=== PATIENT | male | born 1940 | race Caucasian/White ===

== ENCOUNTER 2018-02-26 20:03 | Inpatient (IN) ==
[2018-02-26] MEDS ORDERED: NITROGLYCERIN 2% OINT 1 INCH/GM PACK TOP STA (20:55)
[2018-02-26] MEDS ORDERED: ASPIRIN 325 MG TABLET PO STA (20:55)
[2018-02-26 21:09] LABS: Basophils # 0.1 10*3/uL (0.0-0.2); Basophils % 0.7 % (0.0-0.8); Eosinophils # 0.3 10*3/uL (0.0-0.87); Eosinophils % 4.2 % (0.00-10.9); Hematocrit 44.4 VOL% (42.0-52.0); Hemoglobin 14.3 GM/DL (14.0-18.0); Immature Granulocytes % 0.3 %; Immature Granulocytes Absolute 0.02 #; Lymphocytes # 2.3 10*3/uL (1.4-4.0); Lymphocytes % 32.7 % (21.2-54.2); Mean Corpuscular HGB Conc 32.2 GM/DL (32-36); Mean Corpuscular Hemoglobin 30 PG (27-34); Mean Corpuscular Volume 93.1 FL (87-102); Mean Platelet Volume 10.8 FL (9.6-12.0); Monocytes # 0.6 10*3/uL (0.11-0.8); Neutrophils # 3.8 10*3/uL (1.4-7.4); Neutrophils % 53.1 % (38.7-73.9); Platelet Count 190 T/CUMM (130-400); Red Blood Count 4.77 MC/CUMM (3.8-5.5); Red Cell Distribution Width 13.6 % (9.3-17.3); White Blood Count 7.1 T/CUMM (4-12)
[2018-02-26 21:18] LABS: INR 1.3; PT Patient Result 13.8 SECS
[2018-02-26 21:38] LABS: Albumin 3.7 G/DL (3.4-5.0); Bilirubin,Total 3.4 MG/DL (0.2-1.0); Calcium 8.8 MG/DL (8.5-10.1); Total Protein 6.5 G/DL (6.4-8.3)
[2018-02-26] MEDS ORDERED: ENOXAPARIN 100 MG/ML SYRINGE SUBCUT STA (22:09)
[2018-02-27 01:21] LABS: Basophils # 0.1 10*3/uL (0.0-0.2); Basophils % 0.7 % (0.0-0.8); Eosinophils # 0.4 10*3/uL (0.0-0.87); Hematocrit 43.5 VOL% (42.0-52.0); Hemoglobin 13.9 GM/DL (14.0-18.0); Immature Granulocytes % 0.3 %; Immature Granulocytes Absolute 0.02 #; Lymphocytes # 2.2 10*3/uL (1.4-4.0); Lymphocytes % 30.6 % (21.2-54.2); Mean Corpuscular Hemoglobin 30 PG (27-34); Mean Corpuscular Volume 93.5 FL (87-102); Mean Platelet Volume 11.2 FL (9.6-12.0); Monocytes # 0.6 10*3/uL (0.11-0.8); Monocytes % 7.8 % (1.7-12.7); Neutrophils # 4.1 10*3/uL (1.4-7.4); Neutrophils % 55.6 % (38.7-73.9); Platelet Count 190 T/CUMM (130-400); Red Blood Count 4.65 MC/CUMM (3.8-5.5); Red Cell Distribution Width 13.7 % (9.3-17.3); White Blood Count 7.3 T/CUMM (4-12)
[2018-02-27 01:45] LABS: Albumin 3.8 G/DL (3.4-5.0); Bilirubin,Total 4.5 MG/DL (0.2-1.0); Calcium 8.7 MG/DL (8.5-10.1); Potassium 3.8 MMOL/L (3.5-5.1); Total Protein 6.2 G/DL (6.4-8.3)
[2018-02-27] MEDS ORDERED: ONDANSETRON 4 MG/2 ML VIAL IV PRN (08:11)
[2018-02-27] MEDS ORDERED: MAGNESIUM SULF RIDER 2 GM in PREMIX 1 EACH IV PRN (08:11)
[2018-02-27] MEDS ORDERED: NITROGLYCERIN SL 0.4 MG TABLET SL PRN (08:15)
[2018-02-27] MEDS: ENOXAPARIN 120 MG/0.8 ML SYRINGE SUBCUT SCH ×2 (09:35→22:10)
[2018-02-27] MEDS: FUROSEMIDE 40 MG/4 ML VIAL IV SCH (09:35)
[2018-02-27] MEDS: ASPIRIN EC 81 MG TABLET PO SCH (09:35)
[2018-02-27] MEDS: CARVEDILOL 12.5 MG TABLET PO SCH ×2 (09:35→22:11)
[2018-02-27] MEDS: LISINOPRIL 2.5 MG TABLET PO SCH (09:35)
[2018-02-27] MEDS: PANTOPRAZOLE 40 MG TABLET PO SCH (09:35)
[2018-02-27] MEDS: NITROGLYCERIN 2% OINT 1 INCH/GM PACK TOP SCH ×2 (11:02→17:32)
[2018-02-27] MEDS ORDERED: ATORVASTATIN 20 MG TABLET PO SCH (21:00)
[2018-02-28] MEDS: NITROGLYCERIN 2% OINT 1 INCH/GM PACK TOP SCH ×4 (01:25→19:30)
[2018-02-28 05:02] LABS: Albumin 3.3 G/DL (3.4-5.0); Bilirubin,Total 3.5 MG/DL (0.2-1.0); Calcium 8.2 MG/DL (8.5-10.1); Osmolality,Calculated 288.1 MOS/KG (273-304); Potassium 3.4 MMOL/L (3.5-5.1); Total Protein 5.9 G/DL (6.4-8.3)
[2018-02-28 05:25] LABS: Basophils % 0.5 % (0.0-0.8); Eosinophils # 0.3 10*3/uL (0.0-0.87); Eosinophils % 5.3 % (0.00-10.9); Hematocrit 41.1 VOL% (42.0-52.0); Hemoglobin 13.2 GM/DL (14.0-18.0); Immature Granulocytes % 0.2 %; Immature Granulocytes Absolute 0.01 #; Mean Corpuscular HGB Conc 32.1 GM/DL (32-36); Mean Corpuscular Hemoglobin 30 PG (27-34); Mean Corpuscular Volume 93.8 FL (87-102); Mean Platelet Volume 11.7 FL (9.6-12.0); Monocytes # 0.6 10*3/uL (0.11-0.8); Monocytes % 10.3 % (1.7-12.7); Neutrophils # 2.6 10*3/uL (1.4-7.4); Neutrophils % 46.7 % (38.7-73.9); Platelet Count 157 T/CUMM (130-400); Red Blood Count 4.38 MC/CUMM (3.8-5.5); Red Cell Distribution Width 13.6 % (9.3-17.3); White Blood Count 5.5 T/CUMM (4-12)
[2018-02-28] MEDS: CARVEDILOL 12.5 MG TABLET PO SCH ×2 (09:13→22:13)
[2018-02-28] MEDS: ASPIRIN EC 81 MG TABLET PO SCH (09:13)
[2018-02-28] MEDS: ENOXAPARIN 120 MG/0.8 ML SYRINGE SUBCUT SCH ×2 (09:13→22:13)
[2018-02-28] MEDS: POTASSIUM CHLORIDE 20 MEQ TABLET PO PRN ×2 (09:14→11:02)
[2018-02-28] MEDS: LISINOPRIL 2.5 MG TABLET PO SCH (09:14)
[2018-02-28] MEDS: PANTOPRAZOLE 40 MG TABLET PO SCH (09:14)
[2018-02-28] MEDS: FUROSEMIDE 40 MG/4 ML VIAL IV SCH (09:16)
[2018-02-28] MEDS ORDERED: POTASSIUM CHLORIDE RIDER 10 MEQ in PREMIX 1 EACH IV PRN (15:36)
[2018-02-28] MEDS ORDERED: MAGNESIUM SULF RIDER 2 GM in PREMIX 1 EACH IV PRN (15:36)
[2018-02-28 16:24] LABS: Hepatitis A Ab IgM Quant 0.17 Index; Hepatitis A Ab IgM Result Negative (Negative); Hepatitis B Core IgM Quant 0.09 Index; Hepatitis B Core IgM Result Negative (Negative); Hepatitis B Surface Ag Quant < 0.10 Index; Hepatitis B Surface Ag Result Negative (Negative); Hepatitis C Virus Ab Quant < 0.02 Index; Hepatitis C Virus Ab Result Negative (Negative)
[2018-02-28] MEDS: ALBUTEROL 1.25 MG/3 ML NEB RESP TX SCH ×2 (16:50→19:38)
[2018-03-01] MEDS: ALBUTEROL 1.25 MG/3 ML NEB RESP TX SCH ×4 (00:42→21:28)
[2018-03-01] MEDS: NITROGLYCERIN 2% OINT 1 INCH/GM PACK TOP SCH ×4 (02:43→18:50)
[2018-03-01 05:19] LABS: INR 1.2; PT Patient Result 12.9 SECS
[2018-03-01 05:21] LABS: Basophils % 0.7 % (0.0-0.8); Eosinophils # 0.3 10*3/uL (0.0-0.87); Hemoglobin 13.2 GM/DL (14.0-18.0); Immature Granulocytes % 0.3 %; Immature Granulocytes Absolute 0.02 #; Lymphocytes # 2.5 10*3/uL (1.4-4.0); Lymphocytes % 43.3 % (21.2-54.2); Mean Corpuscular HGB Conc 31.4 GM/DL (32-36); Mean Corpuscular Hemoglobin 30 PG (27-34); Mean Corpuscular Volume 94.8 FL (87-102); Mean Platelet Volume 11.7 FL (9.6-12.0); Monocytes # 0.6 10*3/uL (0.11-0.8); Monocytes % 10.7 % (1.7-12.7); Neutrophils # 2.3 10*3/uL (1.4-7.4); Platelet Count 164 T/CUMM (130-400); Red Blood Count 4.43 MC/CUMM (3.8-5.5); Red Cell Distribution Width 13.6 % (9.3-17.3); White Blood Count 5.8 T/CUMM (4-12)
[2018-03-01 05:37] LABS: Calcium 8.5 MG/DL (8.5-10.1); Osmolality,Calculated 284.3 MOS/KG (273-304); Potassium 3.7 MMOL/L (3.5-5.1)
[2018-03-01 05:46] LABS: Calcium 8.7 MG/DL (8.5-10.1); Osmolality,Calculated 284.3 MOS/KG (273-304); Potassium 3.7 MMOL/L (3.5-5.1)
[2018-03-01] MEDS: ASPIRIN EC 81 MG TABLET PO SCH (09:01)
[2018-03-01] MEDS: LISINOPRIL 2.5 MG TABLET PO SCH (09:01)
[2018-03-01] MEDS: CARVEDILOL 12.5 MG TABLET PO SCH ×2 (09:01→21:24)
[2018-03-01] MEDS: PANTOPRAZOLE 40 MG TABLET PO SCH (09:01)
[2018-03-01] MEDS: ACETAMINOPHEN 325 MG TABLET PO PRN (09:04)
[2018-03-01] MEDS: FUROSEMIDE 40 MG/4 ML VIAL IV SCH (09:05)
[2018-03-01 12:55] LABS: Bilirubin,Direct 0.28 MG/DL (0.0-0.20); Bilirubin,Total 3.3 MG/DL (0.2-1.0)
[2018-03-01] MEDS ORDERED: DIAZEPAM 5 MG TABLET PO ONE (14:00)
[2018-03-01] MEDS ORDERED: diphenhydrAMINE CAP 25 MG CAPSULE PO ONE (14:00)
[2018-03-01 17:20] LABS: Apearance,Urine CLEAR (Clear); Bilirubin,Urine Negative (Negative); Blood, Urine Negative (Negative); Glucose,Urine (UA) Negative (Negative); Hyaline Casts,Urine 1 /LPF (0-3); Ketones,Urine Negative (Negative); Nitrite,Urine Negative (Negative); Protein,Urine Negative; RBC,Urine 1 /HPF (0-4); Urine Color Yellow (Yellow); Urine Specific Gravity 1.009 (1.001-1.035); Urine Urobilinogen < 2.0 EU/DL (0.2-1.0); WBC,Urine <1 /HPF (0-6)
[2018-03-02] MEDS: ALBUTEROL 1.25 MG/3 ML NEB RESP TX SCH ×4 (01:30→20:13)
[2018-03-02] MEDS: NITROGLYCERIN 2% OINT 1 INCH/GM PACK TOP SCH ×3 (02:33→12:20)
[2018-03-02 05:02] LABS: Basophils # 0.1 10*3/uL (0.0-0.2); Basophils % 0.9 % (0.0-0.8); Eosinophils # 0.3 10*3/uL (0.0-0.87); Eosinophils % 5.4 % (0.00-10.9); Hematocrit 41.5 VOL% (42.0-52.0); Hemoglobin 12.8 GM/DL (14.0-18.0); Immature Granulocytes % 0.2 %; Immature Granulocytes Absolute 0.01 #; Lymphocytes # 2.3 10*3/uL (1.4-4.0); Lymphocytes % 42.1 % (21.2-54.2); Mean Corpuscular HGB Conc 30.8 GM/DL (32-36); Mean Corpuscular Hemoglobin 29 PG (27-34); Mean Corpuscular Volume 94.5 FL (87-102); Mean Platelet Volume 11.7 FL (9.6-12.0); Monocytes # 0.5 10*3/uL (0.11-0.8); Monocytes % 9.4 % (1.7-12.7); Neutrophils # 2.2 10*3/uL (1.4-7.4); Platelet Count 161 T/CUMM (130-400); Red Blood Count 4.39 MC/CUMM (3.8-5.5); Red Cell Distribution Width 13.7 % (9.3-17.3); White Blood Count 5.3 T/CUMM (4-12)
[2018-03-02 05:35] LABS: Calcium 8.6 MG/DL (8.5-10.1)
[2018-03-02 05:36] LABS: Osmolality,Calculated 282.4 MOS/KG (273-304); Potassium 3.6 MMOL/L (3.5-5.1)
[2018-03-02] MEDS: CARVEDILOL 12.5 MG TABLET PO SCH ×2 (10:05→21:14)
[2018-03-02] MEDS: PANTOPRAZOLE 40 MG TABLET PO SCH (10:05)
[2018-03-02] MEDS: LISINOPRIL 2.5 MG TABLET PO SCH (10:05)
[2018-03-02] MEDS: ASPIRIN EC 81 MG TABLET PO SCH (10:05)
[2018-03-02] MEDS: FUROSEMIDE 40 MG/4 ML VIAL IV SCH (10:06)
[2018-03-02] MEDS: ISOSORBIDE MONONITRATE 30 MG TABLET PO SCH (15:27)
[2018-03-02] MEDS: ENOXAPARIN 40 MG/0.4 ML SYRINGE SUBCUT SCH (15:27)
[2018-03-03] MEDS: ALBUTEROL 1.25 MG/3 ML NEB RESP TX SCH ×4 (01:46→20:25)
[2018-03-03 04:11] LABS: Basophils % 0.7 % (0.0-0.8); Eosinophils # 0.3 10*3/uL (0.0-0.87); Hematocrit 39.1 VOL% (42.0-52.0); Hemoglobin 12.5 GM/DL (14.0-18.0); Immature Granulocytes % 0.4 %; Immature Granulocytes Absolute 0.02 #; Lymphocytes # 2.1 10*3/uL (1.4-4.0); Mean Corpuscular Hemoglobin 30 PG (27-34); Mean Platelet Volume 11.3 FL (9.6-12.0); Monocytes # 0.6 10*3/uL (0.11-0.8); Monocytes % 10.8 % (1.7-12.7); Neutrophils # 2.5 10*3/uL (1.4-7.4); Neutrophils % 44.1 % (38.7-73.9); Platelet Count 149 T/CUMM (130-400); Red Blood Count 4.16 MC/CUMM (3.8-5.5); Red Cell Distribution Width 13.6 % (9.3-17.3); White Blood Count 5.6 T/CUMM (4-12)
[2018-03-03 04:31] LABS: Calcium 8.2 MG/DL (8.5-10.1); Osmolality,Calculated 282.4 MOS/KG (273-304); Potassium 3.6 MMOL/L (3.5-5.1)
[2018-03-03] MEDS: FUROSEMIDE 40 MG/4 ML VIAL IV SCH (08:54)
[2018-03-03] MEDS: CARVEDILOL 12.5 MG TABLET PO SCH ×2 (08:55→20:43)
[2018-03-03] MEDS: ASPIRIN EC 81 MG TABLET PO SCH (08:55)
[2018-03-03] MEDS: LISINOPRIL 2.5 MG TABLET PO SCH (08:55)
[2018-03-03] MEDS: PANTOPRAZOLE 40 MG TABLET PO SCH (08:55)
[2018-03-03] MEDS: ISOSORBIDE MONONITRATE 30 MG TABLET PO SCH (08:55)
[2018-03-03] MEDS: POTASSIUM CHLORIDE 20 MEQ TABLET PO PRN (08:56)
[2018-03-03] MEDS: ENOXAPARIN 40 MG/0.4 ML SYRINGE SUBCUT SCH (14:45)
[2018-03-04] MEDS: ALBUTEROL 1.25 MG/3 ML NEB RESP TX SCH ×2 (01:44→07:25)
[2018-03-04 04:47] LABS: Basophils # 0.1 10*3/uL (0.0-0.2); Basophils % 0.9 % (0.0-0.8); Eosinophils # 0.4 10*3/uL (0.0-0.87); Eosinophils % 6.7 % (0.00-10.9); Hemoglobin 13.1 GM/DL (14.0-18.0); Immature Granulocytes % 0.2 %; Immature Granulocytes Absolute 0.01 #; Lymphocytes # 2.1 10*3/uL (1.4-4.0); Lymphocytes % 35.6 % (21.2-54.2); Mean Corpuscular Hemoglobin 30 PG (27-34); Mean Corpuscular Volume 93.6 FL (87-102); Mean Platelet Volume 11.1 FL (9.6-12.0); Monocytes # 0.6 10*3/uL (0.11-0.8); Monocytes % 9.8 % (1.7-12.7); Neutrophils # 2.7 10*3/uL (1.4-7.4); Neutrophils % 46.8 % (38.7-73.9); Platelet Count 155 T/CUMM (130-400); Red Blood Count 4.38 MC/CUMM (3.8-5.5); Red Cell Distribution Width 13.6 % (9.3-17.3); White Blood Count 5.8 T/CUMM (4-12)
[2018-03-04 05:14] LABS: Calcium 8.9 MG/DL (8.5-10.1); Osmolality,Calculated 282.4 MOS/KG (273-304); Potassium 3.8 MMOL/L (3.5-5.1)
[2018-03-04] MEDS: FUROSEMIDE 40 MG/4 ML VIAL IV SCH (08:26)
[2018-03-04] MEDS: ASPIRIN EC 81 MG TABLET PO SCH (08:27)
[2018-03-04] MEDS: ISOSORBIDE MONONITRATE 30 MG TABLET PO SCH (08:27)
[2018-03-04] MEDS: LISINOPRIL 2.5 MG TABLET PO SCH (08:27)
[2018-03-04] MEDS: CARVEDILOL 12.5 MG TABLET PO SCH ×2 (08:27→20:44)
[2018-03-04] MEDS: PANTOPRAZOLE 40 MG TABLET PO SCH (08:27)
[2018-03-04] MEDS: ENOXAPARIN 40 MG/0.4 ML SYRINGE SUBCUT SCH (14:26)
[2018-03-04] MEDS: POTASSIUM CHLORIDE 20 MEQ TABLET PO PRN (14:27)
[2018-03-04] MEDS: ACETAMINOPHEN 325 MG TABLET PO PRN (14:29)
[2018-03-04] MEDS: ALBUTEROL/IPRATROPIUM 3 ML NEB RESP TX SCH ×2 (15:02→20:11)
[2018-03-05] MEDS: ALBUTEROL/IPRATROPIUM 3 ML NEB RESP TX SCH ×5 (01:32→19:25)
[2018-03-05 04:51] LABS: Basophils # 0.1 10*3/uL (0.0-0.2); Basophils % 0.9 % (0.0-0.8); Eosinophils # 0.4 10*3/uL (0.0-0.87); Eosinophils % 6.7 % (0.00-10.9); Hematocrit 40.1 VOL% (42.0-52.0); Hemoglobin 12.5 GM/DL (14.0-18.0); Immature Granulocytes % 0.2 %; Immature Granulocytes Absolute 0.01 #; Lymphocytes % 34.1 % (21.2-54.2); Mean Corpuscular HGB Conc 31.2 GM/DL (32-36); Mean Corpuscular Hemoglobin 30 PG (27-34); Mean Corpuscular Volume 94.8 FL (87-102); Mean Platelet Volume 11.1 FL (9.6-12.0); Monocytes # 0.5 10*3/uL (0.11-0.8); Monocytes % 8.7 % (1.7-12.7); Neutrophils # 2.9 10*3/uL (1.4-7.4); Neutrophils % 49.4 % (38.7-73.9); Platelet Count 142 T/CUMM (130-400); Red Blood Count 4.23 MC/CUMM (3.8-5.5); Red Cell Distribution Width 13.7 % (9.3-17.3); White Blood Count 5.8 T/CUMM (4-12)
[2018-03-05 05:00] LABS: Calcium 8.6 MG/DL (8.5-10.1); Osmolality,Calculated 281.4 MOS/KG (273-304); Potassium 3.7 MMOL/L (3.5-5.1)
[2018-03-05] MEDS ORDERED: SODIUM CHLORIDE 0.9% 1,000 ML IV SCH (08:00)
[2018-03-05] MEDS: ASPIRIN EC 81 MG TABLET PO SCH (09:23)
[2018-03-05] MEDS: CARVEDILOL 12.5 MG TABLET PO SCH ×2 (09:23→20:51)
[2018-03-05] MEDS: PANTOPRAZOLE 40 MG TABLET PO SCH (09:24)
[2018-03-05] MEDS: ISOSORBIDE MONONITRATE 30 MG TABLET PO SCH (09:24)
[2018-03-05] MEDS: LISINOPRIL 2.5 MG TABLET PO SCH (09:26)
[2018-03-05] MEDS: FUROSEMIDE 40 MG/4 ML VIAL IV SCH (09:31)
[2018-03-05] MEDS ORDERED: HEPARIN/NACL 0.9% 2 UNITS/ML 1,000 ML IV ONE (12:37)
[2018-03-05] MEDS ORDERED: LIDOCAINE 1% 20 ML VIAL ONE (12:37)
[2018-03-05] MEDS ORDERED: SODIUM BICARBONATE 2.4 MEQ/5 ML VIAL ONE (12:37)
[2018-03-05] MEDS ORDERED: DIAZEPAM 5 MG TABLET PO ONE (13:00)
[2018-03-05] MEDS ORDERED: diphenhydrAMINE CAP 25 MG CAPSULE PO ONE (13:00)
[2018-03-05] MEDS ORDERED: MIDAZOLAM 2 MG/2 ML VIAL ONE ×2 (13:40→14:11)
[2018-03-05] MEDS ORDERED: fentaNYL 100 MCG/2 ML VIAL ONE (13:40)
[2018-03-05] MEDS: ENOXAPARIN 40 MG/0.4 ML SYRINGE SUBCUT SCH (15:32)
[2018-03-05] MEDS ORDERED: ACETAMINOPHEN/CODEINE 300-30 MG TABLET PO PRN (15:34)
[2018-03-05] MEDS ORDERED: MORPHINE 4 MG/1 ML VIAL IV PRN (15:34)
[2018-03-05] MEDS ORDERED: BENZONATATE 100 MG CAPSULE PO PRN (15:34)
[2018-03-05] MEDS ORDERED: methylPREDNISolone SOD SUC 40 MG/1 ML VIAL IV ONE (15:59)
[2018-03-05] MEDS ORDERED: ALBUTEROL/IPRATROPIUM 3 ML NEB RESP TX PRN (16:00)
[2018-03-06] MEDS: ALBUTEROL/IPRATROPIUM 3 ML NEB RESP TX SCH ×2 (01:34→07:15)
[2018-03-06 05:10] LABS: Basophils % 0.3 % (0.0-0.8); Eosinophils % 0.3 % (0.00-10.9); Hematocrit 41.2 VOL% (42.0-52.0); Hemoglobin 12.8 GM/DL (14.0-18.0); Immature Granulocytes % 0.3 %; Immature Granulocytes Absolute 0.01 #; Lymphocytes # 0.8 10*3/uL (1.4-4.0); Lymphocytes % 22.1 % (21.2-54.2); Mean Corpuscular HGB Conc 31.1 GM/DL (32-36); Mean Corpuscular Hemoglobin 29 PG (27-34); Mean Corpuscular Volume 94.3 FL (87-102); Mean Platelet Volume 11.7 FL (9.6-12.0); Monocytes # 0.1 10*3/uL (0.11-0.8); Monocytes % 3.7 % (1.7-12.7); Neutrophils # 2.8 10*3/uL (1.4-7.4); Neutrophils % 73.3 % (38.7-73.9); Platelet Count 153 T/CUMM (130-400); Red Blood Count 4.37 MC/CUMM (3.8-5.5); Red Cell Distribution Width 13.4 % (9.3-17.3); White Blood Count 3.8 T/CUMM (4-12)
[2018-03-06 05:23] LABS: Calcium 9.1 MG/DL (8.5-10.1); Osmolality,Calculated 279.7 MOS/KG (273-304)
[2018-03-06 07:34] VITALS: BP 136/79
[2018-03-06] MEDS ORDERED: CLOPIDOGREL 75 MG TABLET PO SCH (09:00)
[2018-03-06] MEDS: ISOSORBIDE MONONITRATE 30 MG TABLET PO SCH (09:20)
[2018-03-06] MEDS: ASPIRIN EC 81 MG TABLET PO SCH (09:21)
[2018-03-06] MEDS: CARVEDILOL 12.5 MG TABLET PO SCH (09:21)
[2018-03-06] MEDS: PANTOPRAZOLE 40 MG TABLET PO SCH (09:21)
[2018-03-06] MEDS ORDERED: ATORVASTATIN 20 MG TABLET PO SCH (21:00)
== END 2018-03-06 11:09 | disposition home or self-care (01) | DRG 280 ==
LOC: N.ED 20:03 → N.EDINP 22:25 → N.TELEN 23:37
PROVIDERS: ADMIT Internal Medicine Cardiovascular Disease; ATTEND Internal Medicine Cardiovascular Disease

== ENCOUNTER 2018-04-21 21:07 | Inpatient (IN) ==
[2018-04-21 22:11] LABS: Basophils # 0.1 10*3/uL (0.0-0.2); Basophils % 0.9 % (0.0-0.8); Eosinophils # 0.3 10*3/uL (0.0-0.87); Eosinophils % 4.4 % (0.00-10.9); Hematocrit 43.4 VOL% (42.0-52.0); Hemoglobin 13.9 GM/DL (14.0-18.0); Immature Granulocytes % 0.4 %; Immature Granulocytes Absolute 0.03 #; Lymphocytes # 2.1 10*3/uL (1.4-4.0); Lymphocytes % 27.8 % (21.2-54.2); Mean Corpuscular Hemoglobin 29 PG (27-34); Mean Corpuscular Volume 91.2 FL (87-102); Mean Platelet Volume 11.1 FL (9.6-12.0); Monocytes # 0.6 10*3/uL (0.11-0.8); Monocytes % 8.5 % (1.7-12.7); Neutrophils # 4.4 10*3/uL (1.4-7.4); Platelet Count 210 T/CUMM (130-400); Red Blood Count 4.76 MC/CUMM (3.8-5.5); Red Cell Distribution Width 14.3 % (9.3-17.3); White Blood Count 7.5 T/CUMM (4-12)
[2018-04-21 22:19] LABS: INR 1.3; PT Patient Result 13.9 SECS; Partial Thromboplastin Time 27.5 SECS (0-40)
[2018-04-21 22:34] LABS: Albumin 3.6 G/DL (3.4-5.0); Calcium 8.7 MG/DL (8.5-10.1); Osmolality,Calculated 283.5 MOS/KG (273-304); Potassium 4.3 MMOL/L (3.5-5.1); Total Protein 6.5 G/DL (6.4-8.3)
[2018-04-21 22:35] LABS: Troponin I 0.017 NG/ML (0.00-0.045)
[2018-04-22] MEDS ORDERED: FUROSEMIDE 20 MG/2 ML VIAL IV STA (00:50)
[2018-04-22] MEDS ORDERED: FUROSEMIDE 40 MG/4 ML VIAL IV STA (00:50)
[2018-04-22] MEDS ORDERED: FUROSEMIDE 40 MG/4 ML VIAL ONE (00:58)
[2018-04-22] MEDS ORDERED: ONDANSETRON 4 MG/2 ML VIAL IV PRN (02:53)
[2018-04-22] MEDS ORDERED: ACETAMINOPHEN 325 MG TABLET PO PRN (02:53)
[2018-04-22] MEDS ORDERED: NICOTINE 21 MG/24 HR PATCH TRANSDERM PRN (02:53)
[2018-04-22] MEDS ORDERED: guaiFENesin/DM ER 600-30 MG TABLET PO PRN (02:53)
[2018-04-22] MEDS ORDERED: diphenhydrAMINE CAP 25 MG CAPSULE PO PRN (02:53)
[2018-04-22] MEDS ORDERED: BISACODYL 5 MG TABLET PO PRN (02:53)
[2018-04-22 03:44] LABS: Risk Ratio 2.26; VLDL CHOLESTEROL 15.6 MG/DL
[2018-04-22] MEDS ORDERED: cefTRIAXone 1,000 MG in SYRINGE 1 EACH IV SCH (04:00)
[2018-04-22 06:16] LABS: Apearance,Urine CLEAR (Clear); Bilirubin,Urine Negative (Negative); Blood, Urine Negative (Negative); Glucose,Urine (UA) Negative (Negative); Ketones,Urine Negative (Negative); Nitrite,Urine Negative (Negative); Protein,Urine Negative; RBC,Urine <1 /HPF (0-4); Urine Color Straw (Yellow); Urine Specific Gravity 1.014 (1.001-1.035); Urine Urobilinogen < 2.0 EU/DL (0.2-1.0); WBC,Urine <1 /HPF (0-6)
[2018-04-22] MEDS ORDERED: FUROSEMIDE 20 MG/2 ML VIAL IV SCH (08:00)
[2018-04-22] MEDS: ALBUTEROL/IPRATROPIUM 3 ML NEB RESP TX SCH ×2 (08:48→13:22)
[2018-04-22] MEDS ORDERED: NEBIVOLOL 10 MG TABLET PO SCH (09:30)
[2018-04-22] MEDS: PANTOPRAZOLE 40 MG TABLET PO SCH (09:40)
[2018-04-22] MEDS: CLOPIDOGREL 75 MG TABLET PO SCH (09:40)
[2018-04-22] MEDS: ISOSORBIDE MONONITRATE 30 MG TABLET PO SCH (09:40)
[2018-04-22] MEDS: NEBIVOLOL 5 MG TABLET PO SCH (09:40)
[2018-04-22] MEDS: ASPIRIN EC 81 MG TABLET PO SCH (09:40)
[2018-04-22] MEDS: FUROSEMIDE 40 MG/4 ML VIAL IV SCH (16:13)
[2018-04-22] MEDS: ATORVASTATIN 20 MG TABLET PO SCH (20:33)
[2018-04-23 04:26] LABS: Basophils % 0.5 % (0.0-0.8); Eosinophils # 0.3 10*3/uL (0.0-0.87); Eosinophils % 6.2 % (0.00-10.9); Hematocrit 39.6 VOL% (42.0-52.0); Hemoglobin 12.6 GM/DL (14.0-18.0); Immature Granulocytes % 0.2 %; Immature Granulocytes Absolute 0.01 #; Lymphocytes # 1.7 10*3/uL (1.4-4.0); Lymphocytes % 30.4 % (21.2-54.2); Mean Corpuscular HGB Conc 31.8 GM/DL (32-36); Mean Corpuscular Hemoglobin 29 PG (27-34); Mean Corpuscular Volume 91.2 FL (87-102); Mean Platelet Volume 10.7 FL (9.6-12.0); Monocytes # 0.5 10*3/uL (0.11-0.8); Monocytes % 9.1 % (1.7-12.7); Neutrophils % 53.6 % (38.7-73.9); Platelet Count 170 T/CUMM (130-400); Red Blood Count 4.34 MC/CUMM (3.8-5.5); Red Cell Distribution Width 14.3 % (9.3-17.3); White Blood Count 5.5 T/CUMM (4-12)
[2018-04-23 04:48] LABS: Calcium 8.4 MG/DL (8.5-10.1); Potassium 3.4 MMOL/L (3.5-5.1)
[2018-04-23] MEDS ORDERED: PRAMIPEXOLE 0.25 MG TABLET PO PRN (08:53)
[2018-04-23] MEDS: FUROSEMIDE 40 MG/4 ML VIAL IV SCH ×2 (09:40→17:05)
[2018-04-23] MEDS: ASPIRIN EC 81 MG TABLET PO SCH (09:43)
[2018-04-23] MEDS: CLOPIDOGREL 75 MG TABLET PO SCH (09:43)
[2018-04-23] MEDS: ISOSORBIDE MONONITRATE 30 MG TABLET PO SCH (09:43)
[2018-04-23] MEDS: PANTOPRAZOLE 40 MG TABLET PO SCH (09:43)
[2018-04-23] MEDS: NEBIVOLOL 5 MG TABLET PO SCH (09:43)
[2018-04-23] MEDS ORDERED: POTASSIUM CHLORIDE RIDER 10 MEQ in PREMIX 1 EACH IV PRN (09:50)
[2018-04-23] MEDS: ENOXAPARIN 40 MG/0.4 ML SYRINGE SUBCUT SCH (10:57)
[2018-04-23] MEDS: POTASSIUM CHLORIDE 20 MEQ TABLET PO PRN (10:57)
[2018-04-23] MEDS: PRAMIPEXOLE 0.25 MG TABLET PO SCH (21:34)
[2018-04-23] MEDS: ATORVASTATIN 20 MG TABLET PO SCH (21:34)
[2018-04-24 03:39] LABS: Basophils % 0.7 % (0.0-0.8); Eosinophils # 0.4 10*3/uL (0.0-0.87); Eosinophils % 6.4 % (0.00-10.9); Hematocrit 39.8 VOL% (42.0-52.0); Hemoglobin 12.7 GM/DL (14.0-18.0); Immature Granulocytes % 0.3 %; Immature Granulocytes Absolute 0.02 #; Lymphocytes # 1.7 10*3/uL (1.4-4.0); Lymphocytes % 28.9 % (21.2-54.2); Mean Corpuscular HGB Conc 31.9 GM/DL (32-36); Mean Corpuscular Hemoglobin 29 PG (27-34); Mean Corpuscular Volume 90.2 FL (87-102); Mean Platelet Volume 10.7 FL (9.6-12.0); Monocytes # 0.5 10*3/uL (0.11-0.8); Monocytes % 8.8 % (1.7-12.7); Neutrophils # 3.2 10*3/uL (1.4-7.4); Neutrophils % 54.9 % (38.7-73.9); Platelet Count 179 T/CUMM (130-400); Red Blood Count 4.41 MC/CUMM (3.8-5.5); Red Cell Distribution Width 14.2 % (9.3-17.3); White Blood Count 5.8 T/CUMM (4-12)
[2018-04-24 04:09] LABS: Calcium 8.7 MG/DL (8.5-10.1); Osmolality,Calculated 285.3 MOS/KG (273-304); Potassium 3.5 MMOL/L (3.5-5.1)
[2018-04-24] MEDS: FUROSEMIDE 40 MG/4 ML VIAL IV SCH ×2 (08:33→15:09)
[2018-04-24] MEDS: ASPIRIN EC 81 MG TABLET PO SCH (09:32)
[2018-04-24] MEDS: NEBIVOLOL 5 MG TABLET PO SCH (09:32)
[2018-04-24] MEDS: ISOSORBIDE MONONITRATE 30 MG TABLET PO SCH (09:32)
[2018-04-24] MEDS: LOSARTAN 25 MG TABLET PO SCH (09:32)
[2018-04-24] MEDS: CLOPIDOGREL 75 MG TABLET PO SCH (09:33)
[2018-04-24] MEDS: PANTOPRAZOLE 40 MG TABLET PO SCH (09:33)
[2018-04-24] MEDS: ENOXAPARIN 40 MG/0.4 ML SYRINGE SUBCUT SCH (09:39)
[2018-04-24] MEDS ORDERED: POTASSIUM CHLORIDE 10 MEQ TABLET PO ONE (11:58)
[2018-04-24] MEDS: ATORVASTATIN 20 MG TABLET PO SCH (20:19)
[2018-04-24] MEDS: PRAMIPEXOLE 0.25 MG TABLET PO SCH (20:19)
[2018-04-25 04:07] LABS: Basophils # 0.1 10*3/uL (0.0-0.2); Basophils % 0.8 % (0.0-0.8); Eosinophils # 0.4 10*3/uL (0.0-0.87); Eosinophils % 6.7 % (0.00-10.9); Hematocrit 41.8 VOL% (42.0-52.0); Hemoglobin 13.2 GM/DL (14.0-18.0); Immature Granulocytes % 0.2 %; Immature Granulocytes Absolute 0.01 #; Lymphocytes # 1.9 10*3/uL (1.4-4.0); Lymphocytes % 31.4 % (21.2-54.2); Mean Corpuscular HGB Conc 31.6 GM/DL (32-36); Mean Corpuscular Hemoglobin 29 PG (27-34); Mean Corpuscular Volume 90.5 FL (87-102); Mean Platelet Volume 10.9 FL (9.6-12.0); Monocytes # 0.6 10*3/uL (0.11-0.8); Monocytes % 9.6 % (1.7-12.7); Neutrophils # 3.2 10*3/uL (1.4-7.4); Neutrophils % 51.3 % (38.7-73.9); Platelet Count 199 T/CUMM (130-400); Red Blood Count 4.62 MC/CUMM (3.8-5.5); Red Cell Distribution Width 14.1 % (9.3-17.3); White Blood Count 6.2 T/CUMM (4-12)
[2018-04-25 04:20] LABS: Calcium 8.7 MG/DL (8.5-10.1); Osmolality,Calculated 286.3 MOS/KG (273-304); Potassium 3.8 MMOL/L (3.5-5.1)
[2018-04-25] MEDS: LOSARTAN 25 MG TABLET PO SCH (09:32)
[2018-04-25] MEDS: ENOXAPARIN 40 MG/0.4 ML SYRINGE SUBCUT SCH (09:32)
[2018-04-25] MEDS: ASPIRIN EC 81 MG TABLET PO SCH (09:32)
[2018-04-25] MEDS: ISOSORBIDE MONONITRATE 30 MG TABLET PO SCH (09:32)
[2018-04-25] MEDS: NEBIVOLOL 5 MG TABLET PO SCH (09:33)
[2018-04-25] MEDS: PANTOPRAZOLE 40 MG TABLET PO SCH (09:33)
[2018-04-25] MEDS: FUROSEMIDE 40 MG/4 ML VIAL IV SCH ×3 (09:33→17:20)
[2018-04-25] MEDS: CLOPIDOGREL 75 MG TABLET PO SCH (09:33)
[2018-04-25 18:02] LABS: Eosinophils,Pleural Fluid 1 %; Lymphocytes,Pleural Fluid 89 %; Monocytes,Pleural Fluid 7 %; Neutrophils,Pleural Fluid 3 %
[2018-04-25 18:05] LABS: RBC,Pleural Fluid 1477 T/CUMM
[2018-04-25 18:09] LABS: Total Protein,Pleural Fluid 2.6 G/DL
[2018-04-25] MEDS: ATORVASTATIN 20 MG TABLET PO SCH (21:45)
[2018-04-25] MEDS: PRAMIPEXOLE 0.25 MG TABLET PO SCH (21:45)
[2018-04-26 03:11] LABS: Basophils # 0.1 10*3/uL (0.0-0.2); Basophils % 0.8 % (0.0-0.8); Eosinophils # 0.4 10*3/uL (0.0-0.87); Eosinophils % 6.1 % (0.00-10.9); Hematocrit 41.3 VOL% (42.0-52.0); Hemoglobin 13.3 GM/DL (14.0-18.0); Immature Granulocytes % 0.3 %; Immature Granulocytes Absolute 0.02 #; Lymphocytes # 1.8 10*3/uL (1.4-4.0); Lymphocytes % 29.3 % (21.2-54.2); Mean Corpuscular HGB Conc 32.2 GM/DL (32-36); Mean Corpuscular Hemoglobin 29 PG (27-34); Mean Platelet Volume 10.5 FL (9.6-12.0); Monocytes # 0.5 10*3/uL (0.11-0.8); Monocytes % 8.8 % (1.7-12.7); Neutrophils # 3.3 10*3/uL (1.4-7.4); Neutrophils % 54.7 % (38.7-73.9); Platelet Count 193 T/CUMM (130-400); Red Blood Count 4.59 MC/CUMM (3.8-5.5); White Blood Count 6.1 T/CUMM (4-12)
[2018-04-26 03:30] LABS: Calcium 8.7 MG/DL (8.5-10.1); Osmolality,Calculated 280.7 MOS/KG (273-304); Potassium 3.6 MMOL/L (3.5-5.1)
[2018-04-26] MEDS ORDERED: MAGNESIUM SULF RIDER 2 GM in PREMIX 1 EACH IV PRN (08:30)
[2018-04-26] MEDS ORDERED: POTASSIUM CHLORIDE RIDER 10 MEQ in PREMIX 1 EACH IV PRN (08:30)
[2018-04-26] MEDS ORDERED: CLOPIDOGREL 300 MG TABLET PO ONE (08:52)
[2018-04-26] MEDS: SODIUM CHLORIDE 0.9% 1,000 ML IV SCH ×2 (09:38→23:50)
[2018-04-26] MEDS: ENOXAPARIN 40 MG/0.4 ML SYRINGE SUBCUT SCH (09:38)
[2018-04-26] MEDS: FUROSEMIDE 40 MG/4 ML VIAL IV SCH ×2 (09:38→18:15)
[2018-04-26] MEDS: CLOPIDOGREL 75 MG TABLET PO SCH (09:39)
[2018-04-26] MEDS: PANTOPRAZOLE 40 MG TABLET PO SCH (12:24)
[2018-04-26] MEDS: LOSARTAN 25 MG TABLET PO SCH (12:25)
[2018-04-26] MEDS: ISOSORBIDE MONONITRATE 30 MG TABLET PO SCH (12:25)
[2018-04-26] MEDS: ASPIRIN EC 81 MG TABLET PO SCH (12:25)
[2018-04-26] MEDS: NEBIVOLOL 5 MG TABLET PO SCH (12:25)
[2018-04-26] MEDS ORDERED: DIAZEPAM 5 MG TABLET PO ONE (12:30)
[2018-04-26] MEDS ORDERED: diphenhydrAMINE CAP 25 MG CAPSULE PO ONE (12:30)
[2018-04-26] MEDS ORDERED: HEPARIN/NACL 0.9% 2 UNITS/ML 500 ML IV ONE ×4 (13:23→16:00)
[2018-04-26] MEDS ORDERED: HEPARIN 5,000 UNIT/1 ML VIAL ONE ×2 (13:23→14:04)
[2018-04-26] MEDS ORDERED: NITROGLYCERIN DRIP 50 MG/250 ML BOTTLE IV ONE (13:41)
[2018-04-26] MEDS ORDERED: VERAPAMIL 5 MG/2 ML VIAL ONE (13:41)
[2018-04-26] MEDS ORDERED: VANCOMYCIN 500 MG VIAL ONE (14:15)
[2018-04-26] MEDS ORDERED: MIDAZOLAM 2 MG/2 ML VIAL ONE (17:26)
[2018-04-26] MEDS ORDERED: fentaNYL 100 MCG/2 ML VIAL ONE (17:26)
[2018-04-26] MEDS ORDERED: SODIUM CHLORIDE 0.9% 250 ML IV ONE (17:26)
[2018-04-26] MEDS ORDERED: PROPOFOL 200 MG/20 ML VIAL IV ONE (17:26)
[2018-04-26] MEDS ORDERED: PHENYLEPHRINE 1 MG/10 ML SYRINGE IV ONE (17:26)
[2018-04-26] MEDS ORDERED: SODIUM CHLORIDE 0.9% 1,000 ML IV ONE (17:27)
[2018-04-26 18:35] LABS: Apearance,Urine CLEAR (Clear); Bilirubin,Urine Negative (Negative); Blood, Urine Moderate mg/dL (Negative); Glucose,Urine (UA) Negative (Negative); Ketones,Urine Negative (Negative); Nitrite,Urine Negative (Negative); Protein,Urine Negative; RBC,Urine 3 /HPF (0-4); Urine Color Yellow (Yellow); Urine Specific Gravity > 1.060 (1.001-1.035); Urine Urobilinogen < 2.0 EU/DL (0.2-1.0); WBC,Urine 1 /HPF (0-6)
[2018-04-26] MEDS: ATORVASTATIN 20 MG TABLET PO SCH (21:18)
[2018-04-26] MEDS: PRAMIPEXOLE 0.25 MG TABLET PO SCH (21:18)
[2018-04-26] MEDS: POTASSIUM CHLORIDE 20 MEQ TABLET PO PRN ×2 (21:18→23:50)
[2018-04-27 05:56] LABS: Basophils % 0.4 % (0.0-0.8); Eosinophils # 0.1 10*3/uL (0.0-0.87); Eosinophils % 0.7 % (0.00-10.9); Hematocrit 42.8 VOL% (42.0-52.0); Hemoglobin 13.2 GM/DL (14.0-18.0); Immature Granulocytes % 0.4 %; Immature Granulocytes Absolute 0.03 #; Lymphocytes # 0.9 10*3/uL (1.4-4.0); Lymphocytes % 11.4 % (21.2-54.2); Mean Corpuscular HGB Conc 30.8 GM/DL (32-36); Mean Corpuscular Hemoglobin 28 PG (27-34); Mean Corpuscular Volume 91.8 FL (87-102); Mean Platelet Volume 10.7 FL (9.6-12.0); Monocytes # 0.6 10*3/uL (0.11-0.8); Monocytes % 6.9 % (1.7-12.7); Neutrophils # 6.5 10*3/uL (1.4-7.4); Neutrophils % 80.2 % (38.7-73.9); Platelet Count 188 T/CUMM (130-400); Red Blood Count 4.66 MC/CUMM (3.8-5.5); Red Cell Distribution Width 14.1 % (9.3-17.3); White Blood Count 8.1 T/CUMM (4-12)
[2018-04-27 06:11] LABS: Calcium 8.6 MG/DL (8.5-10.1); Osmolality,Calculated 282.5 MOS/KG (273-304); Potassium 4.4 MMOL/L (3.5-5.1)
[2018-04-27 06:21] LABS: Calcium 8.4 MG/DL (8.5-10.1); Osmolality,Calculated 284.4 MOS/KG (273-304); Potassium 4.4 MMOL/L (3.5-5.1)
[2018-04-27] MEDS: CLOPIDOGREL 75 MG TABLET PO SCH (08:09)
[2018-04-27] MEDS: ASPIRIN EC 81 MG TABLET PO SCH (08:09)
[2018-04-27] MEDS: ISOSORBIDE MONONITRATE 30 MG TABLET PO SCH (08:09)
[2018-04-27] MEDS: LOSARTAN 25 MG TABLET PO SCH (08:09)
[2018-04-27] MEDS: NEBIVOLOL 5 MG TABLET PO SCH (08:09)
[2018-04-27] MEDS: FUROSEMIDE 40 MG/4 ML VIAL IV SCH (08:09)
[2018-04-27] MEDS: PANTOPRAZOLE 40 MG TABLET PO SCH (08:10)
[2018-04-27] MEDS: FUROSEMIDE 40 MG TABLET PO SCH (08:57)
[2018-04-27] MEDS: ENOXAPARIN 40 MG/0.4 ML SYRINGE SUBCUT SCH (10:31)
[2018-04-27] MEDS: PRAMIPEXOLE 0.25 MG TABLET PO SCH (21:11)
[2018-04-27] MEDS: ATORVASTATIN 20 MG TABLET PO SCH (21:11)
[2018-04-28 04:31] LABS: Basophils % 0.5 % (0.0-0.8); Eosinophils # 0.4 10*3/uL (0.0-0.87); Eosinophils % 4.7 % (0.00-10.9); Hematocrit 39.8 VOL% (42.0-52.0); Hemoglobin 12.6 GM/DL (14.0-18.0); Immature Granulocytes % 0.4 %; Immature Granulocytes Absolute 0.03 #; Lymphocytes % 23.8 % (21.2-54.2); Mean Corpuscular HGB Conc 31.7 GM/DL (32-36); Mean Corpuscular Hemoglobin 28 PG (27-34); Mean Corpuscular Volume 89.8 FL (87-102); Mean Platelet Volume 10.7 FL (9.6-12.0); Monocytes # 0.8 10*3/uL (0.11-0.8); Monocytes % 9.9 % (1.7-12.7); Neutrophils # 5.1 10*3/uL (1.4-7.4); Neutrophils % 60.7 % (38.7-73.9); Platelet Count 200 T/CUMM (130-400); Red Blood Count 4.43 MC/CUMM (3.8-5.5); Red Cell Distribution Width 14.3 % (9.3-17.3); White Blood Count 8.4 T/CUMM (4-12)
[2018-04-28 04:56] LABS: Calcium 8.4 MG/DL (8.5-10.1); Potassium 3.9 MMOL/L (3.5-5.1)
[2018-04-28] MEDS: LOSARTAN 25 MG TABLET PO SCH (09:27)
[2018-04-28] MEDS: ISOSORBIDE MONONITRATE 30 MG TABLET PO SCH (09:27)
[2018-04-28] MEDS: PANTOPRAZOLE 40 MG TABLET PO SCH (09:27)
[2018-04-28] MEDS: ASPIRIN EC 81 MG TABLET PO SCH (09:27)
[2018-04-28] MEDS: CLOPIDOGREL 75 MG TABLET PO SCH (09:28)
[2018-04-28] MEDS: FUROSEMIDE 40 MG TABLET PO SCH (09:28)
[2018-04-28] MEDS: NEBIVOLOL 5 MG TABLET PO SCH (09:30)
[2018-04-28] MEDS: ENOXAPARIN 40 MG/0.4 ML SYRINGE SUBCUT SCH (09:31)
[2018-04-28] MEDS: PRAMIPEXOLE 0.25 MG TABLET PO SCH (22:29)
[2018-04-28] MEDS: ATORVASTATIN 20 MG TABLET PO SCH (22:29)
[2018-04-29 04:29] LABS: Basophils # 0.1 10*3/uL (0.0-0.2); Basophils % 0.8 % (0.0-0.8); Eosinophils # 0.5 10*3/uL (0.0-0.87); Eosinophils % 7.3 % (0.00-10.9); Hematocrit 36.1 VOL% (42.0-52.0); Hemoglobin 11.5 GM/DL (14.0-18.0); Immature Granulocytes % 0.5 %; Immature Granulocytes Absolute 0.03 #; Lymphocytes # 1.9 10*3/uL (1.4-4.0); Lymphocytes % 30.4 % (21.2-54.2); Mean Corpuscular HGB Conc 31.9 GM/DL (32-36); Mean Corpuscular Hemoglobin 29 PG (27-34); Mean Corpuscular Volume 89.8 FL (87-102); Mean Platelet Volume 10.9 FL (9.6-12.0); Monocytes # 0.5 10*3/uL (0.11-0.8); Monocytes % 8.1 % (1.7-12.7); Neutrophils # 3.3 10*3/uL (1.4-7.4); Neutrophils % 52.9 % (38.7-73.9); Platelet Count 165 T/CUMM (130-400); Red Blood Count 4.02 MC/CUMM (3.8-5.5); Red Cell Distribution Width 14.3 % (9.3-17.3); White Blood Count 6.3 T/CUMM (4-12)
[2018-04-29 05:01] LABS: Calcium 8.5 MG/DL (8.5-10.1); Calcium 8.6 MG/DL (8.5-10.1); Osmolality,Calculated 275.1 MOS/KG (273-304); Potassium 3.5 MMOL/L (3.5-5.1); Potassium 3.6 MMOL/L (3.5-5.1)
[2018-04-29] MEDS: NEBIVOLOL 5 MG TABLET PO SCH (09:40)
[2018-04-29] MEDS: ISOSORBIDE MONONITRATE 30 MG TABLET PO SCH (09:41)
[2018-04-29] MEDS: LOSARTAN 25 MG TABLET PO SCH (09:41)
[2018-04-29] MEDS: ASPIRIN EC 81 MG TABLET PO SCH (09:41)
[2018-04-29] MEDS: FUROSEMIDE 40 MG TABLET PO SCH (09:42)
[2018-04-29] MEDS: CLOPIDOGREL 75 MG TABLET PO SCH (09:42)
[2018-04-29] MEDS: PANTOPRAZOLE 40 MG TABLET PO SCH (09:42)
[2018-04-29] MEDS: ENOXAPARIN 40 MG/0.4 ML SYRINGE SUBCUT SCH (09:54)
[2018-04-29 13:25] VITALS: BP 124/58
== END 2018-04-29 15:22 | disposition home or self-care (01) | DRG 215 ==
LOC: N.EDINP 21:07 → N.ED 21:07 → N.TELES 04-22 06:27 → SUATTDRO 04-24 13:51 → N.CC 04-26 16:37 → N.TELES 04-27 14:33
PROVIDERS: ADMIT Internal Medicine; ATTEND Internal Medicine
PROC: CLCCHCL (ICD-10-PCS; 2018-04-26 13:15)

== ENCOUNTER 2019-01-15 22:59 | Observation (INO) ==
[2019-01-15 23:43] LABS: Basophils # 0.1 10*3/uL (0.0-0.2); Basophils % 0.8 % (0.0-0.8); Eosinophils # 0.3 10*3/uL (0.0-0.87); Eosinophils % 4.5 % (0.00-10.9); Hematocrit 42.6 VOL% (42.0-52.0); Hemoglobin 12.9 GM/DL (14.0-18.0); Immature Granulocytes % 0.3 %; Immature Granulocytes Absolute 0.02 #; Lymphocytes # 2.2 10*3/uL (1.4-4.0); Lymphocytes % 35.4 % (21.2-54.2); Mean Corpuscular HGB Conc 30.3 GM/DL (32-36); Mean Corpuscular Volume 85.2 FL (87-102); Mean Platelet Volume 10.8 FL (9.6-12.0); Monocytes % 7.2 % (1.7-12.7); Neutrophils % 51.8 % (38.7-73.9); Platelet Count 207 T/CUMM (130-400); Red Cell Distribution Width 16.9 % (9.3-17.3); White Blood Count 6.2 T/CUMM (4-12)
[2019-01-15] MEDS ORDERED: ONDANSETRON 4 MG/2 ML VIAL IV STA (23:46)
[2019-01-15] MEDS ORDERED: PANTOPRAZOLE 40 MG VIAL IV STA (23:46)
[2019-01-15] MEDS ORDERED: NITROGLYCERIN 2% OINT 1 INCH/GM PACK TOP STA (23:46)
[2019-01-15] MEDS ORDERED: ASPIRIN 325 MG TABLET PO STA (23:46)
[2019-01-16 00:01] LABS: INR 1.1; PT Patient Result 11.7 SECS (9.6-12.2); Partial Thromboplastin Time 26.4 SECS (20.8-36.0)
[2019-01-16 00:03] LABS: Albumin 4.1 G/DL (3.4-5.0); Bilirubin,Total 2.1 MG/DL (0.2-1.0); Calcium 9.2 MG/DL (8.5-10.1); Osmolality,Calculated 290.3 MOS/KG (273-304); Total Protein 6.9 G/DL (6.4-8.3)
[2019-01-16 00:10] LABS: Troponin I 0.166 NG/ML (0.00-0.045)
[2019-01-16] MEDS ORDERED: FUROSEMIDE 40 MG/4 ML VIAL IV STA (00:40)
[2019-01-16] MEDS ORDERED: ONDANSETRON 4 MG/2 ML VIAL IV PRN (01:46)
[2019-01-16] MEDS ORDERED: ACETAMINOPHEN 325 MG TABLET PO PRN (01:46)
[2019-01-16] MEDS ORDERED: ENOXAPARIN 40 MG/0.4 ML SYRINGE SUBCUT SCH (02:00)
[2019-01-16 02:51] LABS: Risk Ratio 2.52; VLDL CHOLESTEROL 30.4 MG/DL
[2019-01-16] MEDS ORDERED: INFLUENZA VIRUS VACCINE 0.5 ML SYRINGE IM ONE (03:38)
[2019-01-16] MEDS: NITROGLYCERIN 2% OINT 1 INCH/GM PACK TOP SCH ×4 (05:22→23:51)
[2019-01-16] MEDS ORDERED: ALBUTEROL/IPRATROPIUM 3 ML NEB RESP TX PRN (07:47)
[2019-01-16] MEDS: SACUBITRIL/VALSARTAN 49-51 MG TABLET PO SCH ×2 (09:38→20:50)
[2019-01-16] MEDS: FUROSEMIDE 40 MG/4 ML VIAL IV SCH ×2 (09:38→16:38)
[2019-01-16] MEDS: NEBIVOLOL 5 MG TABLET PO SCH (09:38)
[2019-01-16] MEDS: ISOSORBIDE MONONITRATE 30 MG TABLET PO SCH (09:38)
[2019-01-16] MEDS: CLOPIDOGREL 75 MG TABLET PO SCH (12:12)
[2019-01-16] MEDS: ASPIRIN EC 81 MG TABLET PO SCH (12:12)
[2019-01-16] MEDS ORDERED: ATORVASTATIN 20 MG TABLET PO SCH (21:00)
[2019-01-17 05:26] LABS: Basophils # 0.1 10*3/uL (0.0-0.2); Basophils % 0.7 % (0.0-0.8); Eosinophils # 0.3 10*3/uL (0.0-0.87); Eosinophils % 4.1 % (0.00-10.9); Hemoglobin 11.9 GM/DL (14.0-18.0); Immature Granulocytes % 0.4 %; Immature Granulocytes Absolute 0.03 #; Lymphocytes # 1.5 10*3/uL (1.4-4.0); Lymphocytes % 18.6 % (21.2-54.2); Mean Corpuscular HGB Conc 31.3 GM/DL (32-36); Mean Corpuscular Volume 83.3 FL (87-102); Mean Platelet Volume 10.5 FL (9.6-12.0); Monocytes % 7.9 % (1.7-12.7); Neutrophils % 68.3 % (38.7-73.9); Platelet Count 183 T/CUMM (130-400); Red Blood Count 4.56 MC/CUMM (3.8-5.5); Red Cell Distribution Width 16.5 % (9.3-17.3); White Blood Count 8.1 T/CUMM (4-12)
[2019-01-17] MEDS: NITROGLYCERIN 2% OINT 1 INCH/GM PACK TOP SCH (05:57)
[2019-01-17 05:58] LABS: Calcium 8.9 MG/DL (8.5-10.1); Osmolality,Calculated 286.3 MOS/KG (273-304)
[2019-01-17] MEDS: ASPIRIN EC 81 MG TABLET PO SCH (08:47)
[2019-01-17] MEDS: SACUBITRIL/VALSARTAN 49-51 MG TABLET PO SCH (08:47)
[2019-01-17] MEDS: CLOPIDOGREL 75 MG TABLET PO SCH (08:47)
[2019-01-17] MEDS: FUROSEMIDE 40 MG/4 ML VIAL IV SCH (08:49)
[2019-01-17] MEDS: ISOSORBIDE MONONITRATE 30 MG TABLET PO SCH (08:51)
[2019-01-17] MEDS: NEBIVOLOL 5 MG TABLET PO SCH (08:51)
[2019-01-17 12:13] VITALS: BP 124/64
== END 2019-01-17 12:39 | disposition home or self-care (01) ==
LOC: N.ED 22:59 → N.EDINP 22:59 → SUATTDRO 01-16 01:46 → N.2W 01-16 02:21
PROVIDERS: ADMIT Internal Medicine; ATTEND Internal Medicine

== ENCOUNTER 2019-04-13 03:48 | Inpatient (IN) ==
[2019-04-13] MEDS ORDERED: ASPIRIN 325 MG TABLET PO STA (04:22)
[2019-04-13 04:27] LABS: Basophils % 0.3 % (0.0-0.8); Eosinophils # 0.2 10*3/uL (0.0-0.87); Hematocrit 37.4 VOL% (42.0-52.0); Hemoglobin 11.5 GM/DL (14.0-18.0); Immature Granulocytes % 0.7 %; Immature Granulocytes Absolute 0.07 #; Lymphocytes # 1.7 10*3/uL (1.4-4.0); Mean Corpuscular HGB Conc 30.7 GM/DL (32-36); Mean Corpuscular Volume 84.4 FL (87-102); Monocytes % 5.9 % (1.7-12.7); Neutrophils % 73.1 % (38.7-73.9); Platelet Count 163 T/CUMM (130-400); Red Blood Count 4.43 MC/CUMM (3.8-5.5); Red Cell Distribution Width 17.9 % (9.3-17.3); White Blood Count 9.5 T/CUMM (4-12)
[2019-04-13] MEDS: NITROGLYCERIN SL 0.4 MG TABLET SL PRN ×2 (04:42→06:40)
[2019-04-13 04:54] LABS: INR 1.3; PT Patient Result 14.1 SECS (9.6-12.2)
[2019-04-13 04:55] LABS: Albumin 3.9 G/DL (3.4-5.0); Bilirubin,Total 3.2 MG/DL (0.2-1.0); Calcium 8.8 MG/DL (8.5-10.1); Osmolality,Calculated 289.7 MOS/KG (273-304)
[2019-04-13] MEDS ORDERED: FUROSEMIDE 40 MG/4 ML VIAL IV STA (05:19)
[2019-04-13] MEDS ORDERED: FUROSEMIDE 100 MG/10 ML VIAL ONE (05:20)
[2019-04-13] MEDS ORDERED: MAGNESIUM SULF RIDER 2 GM in PREMIX 1 EACH IV PRN (05:36)
[2019-04-13] MEDS ORDERED: ONDANSETRON 4 MG/2 ML VIAL IV PRN (05:36)
[2019-04-13] MEDS ORDERED: MAGNESIUM SULF RIDER 4 GM in PREMIX 1 EACH IV PRN (05:36)
[2019-04-13] MEDS ORDERED: ALBUTEROL/IPRATROPIUM 3 ML NEB RESP TX PRN (05:43)
[2019-04-13] MEDS ORDERED: ENOXAPARIN 40 MG/0.4 ML SYRINGE SUBCUT SCH (06:00)
[2019-04-13] MEDS: NEBIVOLOL 5 MG TABLET PO SCH (08:38)
[2019-04-13] MEDS: SACUBITRIL/VALSARTAN 49-51 MG TABLET PO SCH ×2 (08:38→20:58)
[2019-04-13] MEDS: POTASSIUM CHLORIDE 20 MEQ TABLET PO PRN ×2 (08:38→12:55)
[2019-04-13] MEDS: PANTOPRAZOLE 40 MG TABLET PO SCH (08:38)
[2019-04-13] MEDS: FUROSEMIDE 40 MG/4 ML VIAL IV SCH ×2 (08:39→16:59)
[2019-04-13] MEDS: ASPIRIN EC 81 MG TABLET PO SCH (08:40)
[2019-04-13] MEDS ORDERED: FUROSEMIDE 40 MG/4 ML VIAL ONE (16:47)
[2019-04-13] MEDS ORDERED: FUROSEMIDE 40 MG/4 ML VIAL IV SCH (16:48)
[2019-04-13] MEDS: ENOXAPARIN 100 MG/ML SYRINGE SUBCUT SCH (16:51)
[2019-04-13] MEDS: CLOPIDOGREL 75 MG TABLET PO SCH (16:51)
[2019-04-13] MEDS: ATORVASTATIN 20 MG TABLET PO SCH (20:58)
[2019-04-13] MEDS: ACETAMINOPHEN 325 MG TABLET PO PRN (20:58)
[2019-04-14] MEDS ORDERED: MELATONIN 3 MG TABLET PO PRN (00:11)
[2019-04-14] MEDS: ACETAMINOPHEN 325 MG TABLET PO PRN (02:50)
[2019-04-14] MEDS: ENOXAPARIN 100 MG/ML SYRINGE SUBCUT SCH ×2 (05:32→16:59)
[2019-04-14 05:49] LABS: Basophils % 0.5 % (0.0-0.8); Eosinophils # 0.4 10*3/uL (0.0-0.87); Eosinophils % 4.9 % (0.00-10.9); Hematocrit 36.2 VOL% (42.0-52.0); Hemoglobin 11.2 GM/DL (14.0-18.0); Immature Granulocytes % 0.3 %; Immature Granulocytes Absolute 0.02 #; Lymphocytes # 1.4 10*3/uL (1.4-4.0); Mean Corpuscular HGB Conc 30.9 GM/DL (32-36); Mean Platelet Volume 11.2 FL (9.6-12.0); Monocytes % 8.2 % (1.7-12.7); Neutrophils % 68.1 % (38.7-73.9); Platelet Count 174 T/CUMM (130-400); Red Blood Count 4.31 MC/CUMM (3.8-5.5); Red Cell Distribution Width 18.1 % (9.3-17.3); White Blood Count 7.6 T/CUMM (4-12)
[2019-04-14 06:06] LABS: Albumin 3.6 G/DL (3.4-5.0); Bilirubin,Total 3.4 MG/DL (0.2-1.0); Calcium 8.8 MG/DL (8.5-10.1); Osmolality,Calculated 293.4 MOS/KG (273-304); Total Protein 6.7 G/DL (6.4-8.3)
[2019-04-14 06:07] LABS: Risk Ratio 2.05; VLDL CHOLESTEROL 14.6 MG/DL
[2019-04-14] MEDS: PANTOPRAZOLE 40 MG TABLET PO SCH (08:45)
[2019-04-14] MEDS: SACUBITRIL/VALSARTAN 49-51 MG TABLET PO SCH ×2 (08:45→21:56)
[2019-04-14] MEDS: CLOPIDOGREL 75 MG TABLET PO SCH (08:45)
[2019-04-14] MEDS: NEBIVOLOL 5 MG TABLET PO SCH (08:45)
[2019-04-14] MEDS: ASPIRIN EC 81 MG TABLET PO SCH (08:45)
[2019-04-14] MEDS ORDERED: RANITIDINE 150 MG TABLET PO SCH (09:00)
[2019-04-14] MEDS ORDERED: CLOPIDOGREL 75 MG TABLET PO SCH (09:00)
[2019-04-14] MEDS ORDERED: NEBIVOLOL 10 MG TABLET PO SCH (09:00)
[2019-04-14] MEDS ORDERED: ISOSORBIDE MONONITRATE 30 MG TABLET PO SCH (09:00)
[2019-04-14] MEDS: ISOSORBIDE MONONITRATE 30 MG TABLET PO SCH (13:37)
[2019-04-14] MEDS ORDERED: FUROSEMIDE 40 MG/4 ML VIAL IV SCH (16:44)
[2019-04-14] MEDS: ATORVASTATIN 20 MG TABLET PO SCH (21:56)
[2019-04-15 05:27] LABS: Calcium 8.7 MG/DL (8.5-10.1); Osmolality,Calculated 292.5 MOS/KG (273-304)
[2019-04-15] MEDS: ENOXAPARIN 100 MG/ML SYRINGE SUBCUT SCH ×2 (05:43→17:01)
[2019-04-15] MEDS: SACUBITRIL/VALSARTAN 49-51 MG TABLET PO SCH (09:29)
[2019-04-15] MEDS: ASPIRIN EC 81 MG TABLET PO SCH (09:30)
[2019-04-15] MEDS: PANTOPRAZOLE 40 MG TABLET PO SCH (09:30)
[2019-04-15] MEDS: ISOSORBIDE MONONITRATE 30 MG TABLET PO SCH (09:30)
[2019-04-15] MEDS: NEBIVOLOL 5 MG TABLET PO SCH (09:31)
[2019-04-15] MEDS: CLOPIDOGREL 75 MG TABLET PO SCH (09:31)
[2019-04-15] MEDS: FUROSEMIDE 40 MG/4 ML VIAL IV SCH ×2 (10:42→15:22)
[2019-04-15] MEDS: ATORVASTATIN 20 MG TABLET PO SCH (21:59)
[2019-04-16 05:15] LABS: Basophils # 0.1 10*3/uL (0.0-0.2); Eosinophils # 0.4 10*3/uL (0.0-0.87); Eosinophils % 6.7 % (0.00-10.9); Hematocrit 36.9 VOL% (42.0-52.0); Hemoglobin 11.5 GM/DL (14.0-18.0); Immature Granulocytes % 0.3 %; Immature Granulocytes Absolute 0.02 #; Lymphocytes # 1.7 10*3/uL (1.4-4.0); Lymphocytes % 29.5 % (21.2-54.2); Mean Corpuscular HGB Conc 31.2 GM/DL (32-36); Mean Corpuscular Volume 84.6 FL (87-102); Mean Platelet Volume 12.2 FL (9.6-12.0); Monocytes % 10.4 % (1.7-12.7); Neutrophils % 52.1 % (38.7-73.9); Platelet Count 200 T/CUMM (130-400); Red Blood Count 4.36 MC/CUMM (3.8-5.5); Red Cell Distribution Width 18.1 % (9.3-17.3); White Blood Count 5.8 T/CUMM (4-12)
[2019-04-16 05:33] LABS: Calcium 8.7 MG/DL (8.5-10.1); Osmolality,Calculated 295.3 MOS/KG (273-304)
[2019-04-16] MEDS: ENOXAPARIN 100 MG/ML SYRINGE SUBCUT SCH (05:58)
[2019-04-16] MEDS: PANTOPRAZOLE 40 MG TABLET PO SCH (09:35)
[2019-04-16] MEDS: CLOPIDOGREL 75 MG TABLET PO SCH (09:35)
[2019-04-16] MEDS: ISOSORBIDE MONONITRATE 30 MG TABLET PO SCH (09:35)
[2019-04-16] MEDS: ASPIRIN EC 81 MG TABLET PO SCH (09:35)
[2019-04-16] MEDS: FUROSEMIDE 40 MG/4 ML VIAL IV SCH (09:35)
[2019-04-16] MEDS: NEBIVOLOL 5 MG TABLET PO SCH (09:35)
[2019-04-16 11:47] VITALS: BP 127/69
== END 2019-04-16 12:46 | disposition home or self-care (01) | DRG 280 ==
LOC: N.ED 03:48 → N.EDINP 05:36 → N.TELEN 06:49
PROVIDERS: ADMIT Internal Medicine; ATTEND Internal Medicine

== ENCOUNTER 2019-04-23 00:33 | Observation (INO) ==
[2019-04-23] MEDS ORDERED: NITROGLYCERIN 2% OINT 1 INCH/GM PACK TOP STA (01:04)
[2019-04-23] MEDS ORDERED: ALUM/MAG/SIMETH/LIDO VISC 1:1 30 ML BOTTLE PO STA (01:04)
[2019-04-23] MEDS ORDERED: ASPIRIN 325 MG TABLET PO STA (01:04)
[2019-04-23] MEDS ORDERED: MORPHINE 4 MG/1 ML VIAL IV STA ×2 (01:04→01:48)
[2019-04-23] MEDS ORDERED: ONDANSETRON 4 MG/2 ML VIAL IV STA (01:04)
[2019-04-23 01:15] LABS: Basophils # 0.1 10*3/uL (0.0-0.2); Basophils % 0.5 % (0.0-0.8); Eosinophils # 0.6 10*3/uL (0.0-0.87); Eosinophils % 6.2 % (0.00-10.9); Hematocrit 40.8 VOL% (42.0-52.0); Hemoglobin 12.7 GM/DL (14.0-18.0); Immature Granulocytes % 0.6 %; Immature Granulocytes Absolute 0.06 #; Lymphocytes # 2.5 10*3/uL (1.4-4.0); Lymphocytes % 27.3 % (21.2-54.2); Mean Corpuscular HGB Conc 31.1 GM/DL (32-36); Mean Corpuscular Volume 83.3 FL (87-102); Mean Platelet Volume 11.5 FL (9.6-12.0); Monocytes % 7.5 % (1.7-12.7); Neutrophils % 57.9 % (38.7-73.9); Platelet Count 339 T/CUMM (130-400); Red Cell Distribution Width 18.2 % (9.3-17.3); White Blood Count 9.3 T/CUMM (4-12)
[2019-04-23 01:27] LABS: Albumin 4.2 G/DL (3.4-5.0); Bilirubin,Total 2.2 MG/DL (0.2-1.0); Calcium 9.4 MG/DL (8.5-10.1); Osmolality,Calculated 285.1 MOS/KG (273-304); Total Protein 7.4 G/DL (6.4-8.3)
[2019-04-23 01:33] LABS: INR 1.1; PT Patient Result 12.4 SECS (9.6-12.2)
[2019-04-23] MEDS ORDERED: FUROSEMIDE 40 MG/4 ML VIAL IV STA (02:20)
[2019-04-23] MEDS ORDERED: ACETAMINOPHEN 325 MG TABLET PO PRN (03:20)
[2019-04-23] MEDS ORDERED: MORPHINE 4 MG/1 ML VIAL IV PRN (03:20)
[2019-04-23] MEDS ORDERED: hydrALAZINE 20 MG/1 ML VIAL IV PRN (03:20)
[2019-04-23] MEDS ORDERED: DOCUSATE SODIUM 100 MG CAPSULE PO PRN (03:20)
[2019-04-23] MEDS ORDERED: NITROGLYCERIN SL 0.4 MG TABLET SL PRN (03:34)
[2019-04-23] MEDS ORDERED: diphenhydrAMINE 50 MG/1 ML VIAL ONE (03:45)
[2019-04-23] MEDS ORDERED: diphenhydrAMINE 50 MG/1 ML VIAL IV ONE (03:50)
[2019-04-23] MEDS: NEBIVOLOL 5 MG TABLET PO SCH (15:43)
[2019-04-23] MEDS: SACUBITRIL/VALSARTAN 49-51 MG TABLET PO SCH ×2 (15:43→20:54)
[2019-04-23] MEDS: ISOSORBIDE MONONITRATE 30 MG TABLET PO SCH (15:44)
[2019-04-23] MEDS ORDERED: FUROSEMIDE 40 MG TABLET PO SCH (16:00)
[2019-04-23] MEDS: PANTOPRAZOLE 40 MG TABLET PO SCH (16:06)
[2019-04-23] MEDS: CLOPIDOGREL 75 MG TABLET PO SCH (16:38)
[2019-04-23] MEDS: ENOXAPARIN 40 MG/0.4 ML SYRINGE SUBCUT SCH (16:38)
[2019-04-23] MEDS: FUROSEMIDE 40 MG/4 ML VIAL IV SCH (16:38)
[2019-04-23] MEDS: ATORVASTATIN 20 MG TABLET PO SCH (20:53)
[2019-04-23] MEDS: RANOLAZINE 500 MG TABLET PO SCH (21:45)
[2019-04-23] MEDS: traMADol 50 MG TABLET PO PRN (22:51)
[2019-04-24] MEDS: PANTOPRAZOLE 40 MG TABLET PO SCH (05:35)
[2019-04-24 06:38] LABS: Basophils # 0.1 10*3/uL (0.0-0.2); Eosinophils # 0.5 10*3/uL (0.0-0.87); Eosinophils % 7.1 % (0.00-10.9); Hematocrit 40.1 VOL% (42.0-52.0); Hemoglobin 12.3 GM/DL (14.0-18.0); Immature Granulocytes % 0.3 %; Immature Granulocytes Absolute 0.02 #; Lymphocytes # 2.2 10*3/uL (1.4-4.0); Lymphocytes % 30.1 % (21.2-54.2); Mean Corpuscular HGB Conc 30.7 GM/DL (32-36); Mean Corpuscular Volume 85.7 FL (87-102); Monocytes % 7.1 % (1.7-12.7); Neutrophils % 54.4 % (38.7-73.9); Platelet Count 295 T/CUMM (130-400); Red Blood Count 4.68 MC/CUMM (3.8-5.5); Red Cell Distribution Width 17.7 % (9.3-17.3); White Blood Count 7.4 T/CUMM (4-12)
[2019-04-24 07:00] LABS: Calcium 8.7 MG/DL (8.5-10.1); Osmolality,Calculated 287.7 MOS/KG (273-304)
[2019-04-24] MEDS: ENOXAPARIN 40 MG/0.4 ML SYRINGE SUBCUT SCH (08:42)
[2019-04-24] MEDS: CLOPIDOGREL 75 MG TABLET PO SCH (08:42)
[2019-04-24] MEDS: RANOLAZINE 500 MG TABLET PO SCH ×2 (08:42→23:20)
[2019-04-24] MEDS: FUROSEMIDE 40 MG/4 ML VIAL IV SCH ×2 (08:42→16:31)
[2019-04-24] MEDS: ASPIRIN CHEW 81 MG TABLET PO SCH (08:43)
[2019-04-24] MEDS: traMADol 50 MG TABLET PO PRN (08:46)
[2019-04-24] MEDS: SACUBITRIL/VALSARTAN 49-51 MG TABLET PO SCH ×2 (08:53→23:20)
[2019-04-24] MEDS: NEBIVOLOL 5 MG TABLET PO SCH (08:53)
[2019-04-24] MEDS: ISOSORBIDE MONONITRATE 30 MG TABLET PO SCH (08:53)
[2019-04-24] MEDS: ONDANSETRON 4 MG/2 ML VIAL IV PRN ×2 (12:31→18:01)
[2019-04-24] MEDS ORDERED: PRAMIPEXOLE 0.25 MG TABLET PO SCH (21:00)
[2019-04-24] MEDS: ATORVASTATIN 20 MG TABLET PO SCH (23:22)
[2019-04-25] MEDS: PANTOPRAZOLE 40 MG TABLET PO SCH (06:36)
[2019-04-25 08:03] VITALS: BP 101/62
[2019-04-25] MEDS: FUROSEMIDE 40 MG/4 ML VIAL IV SCH (09:05)
[2019-04-25] MEDS: ASPIRIN CHEW 81 MG TABLET PO SCH (09:06)
[2019-04-25] MEDS: RANOLAZINE 500 MG TABLET PO SCH (09:06)
[2019-04-25] MEDS: SACUBITRIL/VALSARTAN 49-51 MG TABLET PO SCH (09:06)
[2019-04-25] MEDS: CLOPIDOGREL 75 MG TABLET PO SCH (09:06)
[2019-04-25] MEDS: NEBIVOLOL 5 MG TABLET PO SCH (09:06)
[2019-04-25] MEDS: ISOSORBIDE MONONITRATE 30 MG TABLET PO SCH (09:06)
[2019-04-25] MEDS: ENOXAPARIN 40 MG/0.4 ML SYRINGE SUBCUT SCH (09:12)
== END 2019-04-25 12:18 | disposition home or self-care (01) ==
LOC: N.ED 00:33 → N.EDINP 00:33 → N.2E 04:05
PROVIDERS: ADMIT Internal Medicine; ATTEND Internal Medicine

== ENCOUNTER 2019-05-16 22:10 | Inpatient (IN) ==
[2019-05-16] MEDS ORDERED: NITROGLYCERIN 2% OINT 1 INCH/GM PACK TOP STA (23:03)
[2019-05-16] MEDS ORDERED: ASPIRIN 325 MG TABLET PO STA (23:03)
[2019-05-16] MEDS ORDERED: ONDANSETRON 4 MG/2 ML VIAL IV STA (23:03)
[2019-05-16 23:13] LABS: Basophils % 0.6 % (0.0-0.8); Eosinophils # 0.2 10*3/uL (0.0-0.87); Eosinophils % 2.3 % (0.00-10.9); Hematocrit 38.1 VOL% (42.0-52.0); Hemoglobin 11.5 GM/DL (14.0-18.0); Immature Granulocytes % 0.4 %; Immature Granulocytes Absolute 0.03 #; Lymphocytes # 1.5 10*3/uL (1.4-4.0); Lymphocytes % 22.3 % (21.2-54.2); Mean Corpuscular HGB Conc 30.2 GM/DL (32-36); Mean Corpuscular Volume 87.4 FL (87-102); Mean Platelet Volume 11.1 FL (9.6-12.0); Monocytes % 8.1 % (1.7-12.7); Neutrophils % 66.3 % (38.7-73.9); Platelet Count 222 T/CUMM (130-400); Red Blood Count 4.36 MC/CUMM (3.8-5.5); Red Cell Distribution Width 18.2 % (9.3-17.3); White Blood Count 6.9 T/CUMM (4-12)
[2019-05-16 23:33] LABS: Alanine Aminotransferase 17 U/L (16-61); Albumin 4.2 G/DL (3.4-5.0); Alkaline Phosphatase 80 U/L (45-117); Aspartate Amino Transferase 9 U/L (0-37); Blood Urea Nitrogen 57 MG/DL (7-18); Estimated Glom Filtration Rate 30 ML/MIN; Glucose 126 MG/DL (74-106); Osmolality,Calculated 292.7 MOS/KG (273-304); Total Protein 6.9 G/DL (6.4-8.3)
[2019-05-16 23:34] LABS: Troponin I 0.059 NG/ML (0.00-0.045)
[2019-05-17 00:09] LABS: INR 1.1; PT Patient Result 12.2 SECS (9.6-12.2); Partial Thromboplastin Time 24.8 SECS (20.8-36.0)
[2019-05-17 01:14] LABS: Apearance,Urine CLEAR (Clear); Bacteria,Urine Occasional /HPF (Few); Bilirubin,Urine Negative (Negative); Blood, Urine Negative (Negative); Glucose,Urine (UA) Negative (Negative); Hyaline Casts,Urine 23 /LPF (0-3); Ketones,Urine Negative (Negative); Mucus,Urine Occasional /LPF (Occasional); Nitrite,Urine Negative (Negative); Protein,Urine Negative; RBC,Urine 1 /HPF (0-4); Squamous Epithelial Cell,Urine Occasional /HPF (0-10); Urine Color Yellow (Yellow); Urine Specific Gravity 1.014 (1.001-1.035); Urine Urobilinogen < 2.0 EU/DL (0.2-1.0); WBC,Urine 5 /HPF (0-6)
[2019-05-17] MEDS ORDERED: NICOTINE 21 MG/24 HR PATCH TRANSDERM PRN (03:05)
[2019-05-17] MEDS ORDERED: MORPHINE 4 MG/1 ML VIAL IV PRN (03:05)
[2019-05-17] MEDS ORDERED: guaiFENesin/DM ER 600-30 MG TABLET PO PRN (03:05)
[2019-05-17] MEDS ORDERED: ONDANSETRON 4 MG/2 ML VIAL IV PRN (03:05)
[2019-05-17] MEDS ORDERED: hydrALAZINE 20 MG/1 ML VIAL IV PRN (03:05)
[2019-05-17] MEDS ORDERED: LEVOFLOXACIN INJ 500 MG in PREMIX 1 EACH IV ONE (05:00)
[2019-05-17 05:09] LABS: Risk Ratio 2.53; VLDL CHOLESTEROL 19.4 MG/DL
[2019-05-17 07:18] LABS: Bilirubin,Total 1.8 MG/DL (0.2-1.0); Calcium 9.3 MG/DL (8.5-10.1); Osmolality,Calculated 291.7 MOS/KG (273-304); Total Protein 6.9 G/DL (6.4-8.3)
[2019-05-17] MEDS ORDERED: FUROSEMIDE 40 MG/4 ML VIAL IV SCH (09:56)
[2019-05-17] MEDS: RANOLAZINE 500 MG TABLET PO SCH ×2 (10:47→21:18)
[2019-05-17] MEDS: CLOPIDOGREL 75 MG TABLET PO SCH (10:47)
[2019-05-17] MEDS: ISOSORBIDE MONONITRATE 30 MG TABLET PO SCH (10:48)
[2019-05-17] MEDS: NEBIVOLOL 5 MG TABLET PO SCH (10:53)
[2019-05-17] MEDS ORDERED: FUROSEMIDE 20 MG TABLET PO SCH (17:00)
[2019-05-17] MEDS ORDERED: MAGNESIUM HYDROXIDE SUSP 30 ML UDCUP PO ONE (19:28)
[2019-05-17] MEDS: ACETAMINOPHEN 325 MG TABLET PO PRN (19:30)
[2019-05-17] MEDS: MELATONIN 3 MG TABLET PO SCH (21:18)
[2019-05-17] MEDS: ATORVASTATIN 20 MG TABLET PO SCH (21:18)
[2019-05-17] MEDS: PRAMIPEXOLE 0.25 MG TABLET PO SCH (21:18)
[2019-05-17] MEDS ORDERED: ASPIRIN 325 MG TABLET PO SCH (23:00)
[2019-05-18] MEDS: ALBUTEROL/IPRATROPIUM 3 ML NEB RESP TX PRN ×2 (00:55→15:30)
[2019-05-18 05:57] LABS: Calcium 8.8 MG/DL (8.5-10.1)
[2019-05-18] MEDS ORDERED: FUROSEMIDE 40 MG TABLET PO SCH (09:00)
[2019-05-18] MEDS: LEVOFLOXACIN INJ 250 MG in PREMIX 1 EACH IV SCH (09:53)
[2019-05-18] MEDS: RANOLAZINE 500 MG TABLET PO SCH ×2 (10:01→20:30)
[2019-05-18] MEDS: NEBIVOLOL 5 MG TABLET PO SCH (10:17)
[2019-05-18] MEDS: CLOPIDOGREL 75 MG TABLET PO SCH (10:17)
[2019-05-18] MEDS: ISOSORBIDE MONONITRATE 30 MG TABLET PO SCH (10:17)
[2019-05-18] MEDS: SODIUM CHLORIDE 0.45% 1,000 ML IV SCH (11:50)
[2019-05-18 11:54] LABS: Calcium 9.3 MG/DL (8.5-10.1); Osmolality,Calculated 288.4 MOS/KG (273-304)
[2019-05-18] MEDS ORDERED: SODIUM POLYSTYRENE SULFATE 15 GM/60 ML BOTTLE PO ONE (13:05)
[2019-05-18] MEDS: ATORVASTATIN 20 MG TABLET PO SCH (20:30)
[2019-05-18] MEDS: MELATONIN 3 MG TABLET PO SCH (20:30)
[2019-05-18] MEDS: PRAMIPEXOLE 0.25 MG TABLET PO SCH (20:30)
[2019-05-19 05:42] LABS: Calcium 8.9 MG/DL (8.5-10.1); Osmolality,Calculated 290.1 MOS/KG (273-304)
[2019-05-19] MEDS: RANOLAZINE 500 MG TABLET PO SCH ×2 (08:32→21:43)
[2019-05-19] MEDS: CLOPIDOGREL 75 MG TABLET PO SCH (08:32)
[2019-05-19] MEDS: LEVOFLOXACIN INJ 250 MG in PREMIX 1 EACH IV SCH (08:32)
[2019-05-19] MEDS: ISOSORBIDE MONONITRATE 30 MG TABLET PO SCH (08:33)
[2019-05-19] MEDS: ALBUTEROL/IPRATROPIUM 3 ML NEB RESP TX PRN ×2 (11:23→23:57)
[2019-05-19] MEDS: PRAMIPEXOLE 0.25 MG TABLET PO SCH (21:43)
[2019-05-19] MEDS: MELATONIN 3 MG TABLET PO SCH (21:43)
[2019-05-19] MEDS: ATORVASTATIN 20 MG TABLET PO SCH (21:43)
[2019-05-20 04:45] LABS: Basophils # 0.1 10*3/uL (0.0-0.2); Basophils % 0.7 % (0.0-0.8); Eosinophils # 0.3 10*3/uL (0.0-0.87); Eosinophils % 4.2 % (0.00-10.9); Hematocrit 34.9 VOL% (42.0-52.0); Hemoglobin 10.8 GM/DL (14.0-18.0); Immature Granulocytes % 0.3 %; Immature Granulocytes Absolute 0.02 #; Lymphocytes # 1.4 10*3/uL (1.4-4.0); Lymphocytes % 21.4 % (21.2-54.2); Mean Corpuscular HGB Conc 30.9 GM/DL (32-36); Mean Corpuscular Volume 85.3 FL (87-102); Mean Platelet Volume 11.4 FL (9.6-12.0); Monocytes % 9.7 % (1.7-12.7); Neutrophils % 63.7 % (38.7-73.9); Platelet Count 196 T/CUMM (130-400); Red Blood Count 4.09 MC/CUMM (3.8-5.5); Red Cell Distribution Width 17.9 % (9.3-17.3); White Blood Count 6.7 T/CUMM (4-12)
[2019-05-20 05:06] LABS: Calcium 8.8 MG/DL (8.5-10.1); Osmolality,Calculated 288.2 MOS/KG (273-304)
[2019-05-20] MEDS: SODIUM CHLORIDE 0.45% 1,000 ML IV SCH ×2 (05:49)
[2019-05-20] MEDS: CLOPIDOGREL 75 MG TABLET PO SCH (08:56)
[2019-05-20] MEDS: RANOLAZINE 500 MG TABLET PO SCH ×2 (08:56→20:57)
[2019-05-20] MEDS: ISOSORBIDE MONONITRATE 30 MG TABLET PO SCH (08:56)
[2019-05-20] MEDS: LEVOFLOXACIN INJ 250 MG in PREMIX 1 EACH IV SCH (08:57)
[2019-05-20] MEDS ORDERED: ENOXAPARIN 30 MG/0.3 ML SYRINGE SUBCUT ONE (10:43)
[2019-05-20] MEDS: ASPIRIN EC 81 MG TABLET PO SCH (11:04)
[2019-05-20] MEDS ORDERED: MAGNESIUM HYDROXIDE SUSP 30 ML UDCUP PO ONE (17:31)
[2019-05-20] MEDS: ACETAMINOPHEN 325 MG TABLET PO PRN (17:36)
[2019-05-20] MEDS: PRAMIPEXOLE 0.25 MG TABLET PO SCH (20:57)
[2019-05-20] MEDS: MELATONIN 3 MG TABLET PO SCH (20:57)
[2019-05-20] MEDS ORDERED: ATORVASTATIN 20 MG TABLET PO SCH (21:00)
[2019-05-20] MEDS ORDERED: ATORVASTATIN 40 MG TABLET PO SCH (21:00)
[2019-05-20] MEDS: diphenhydrAMINE CAP 25 MG CAPSULE PO PRN (22:29)
[2019-05-21] MEDS: ALUMINUM/MAGNES/SIMETH MAX STR 30 ML UDCUP PO PRN ×2 (00:08→21:25)
[2019-05-21] MEDS: SODIUM CHLORIDE 0.45% 1,000 ML IV SCH (00:52)
[2019-05-21] MEDS: ALBUTEROL/IPRATROPIUM 3 ML NEB RESP TX PRN (03:52)
[2019-05-21 04:45] LABS: Basophils # 0.1 10*3/uL (0.0-0.2); Basophils % 0.7 % (0.0-0.8); Eosinophils # 0.3 10*3/uL (0.0-0.87); Eosinophils % 4.4 % (0.00-10.9); Hematocrit 37.1 VOL% (42.0-52.0); Hemoglobin 11.5 GM/DL (14.0-18.0); Immature Granulocytes % 0.4 %; Immature Granulocytes Absolute 0.03 #; Lymphocytes # 1.3 10*3/uL (1.4-4.0); Lymphocytes % 18.3 % (21.2-54.2); Mean Corpuscular Volume 85.3 FL (87-102); Mean Platelet Volume 11.2 FL (9.6-12.0); Monocytes % 9.8 % (1.7-12.7); Neutrophils % 66.4 % (38.7-73.9); Platelet Count 197 T/CUMM (130-400); Red Blood Count 4.35 MC/CUMM (3.8-5.5); White Blood Count 7.3 T/CUMM (4-12)
[2019-05-21 05:19] LABS: Calcium 8.5 MG/DL (8.5-10.1); Osmolality,Calculated 286.2 MOS/KG (273-304)
[2019-05-21 05:42] LABS: Albumin 3.4 G/DL (3.4-5.0); Bilirubin,Direct 0.3 MG/DL (0.0-0.20); Bilirubin,Indirect 2.7 MG/DL (0.0-1.0); Total Protein 6.1 G/DL (6.4-8.3)
[2019-05-21] MEDS: RANOLAZINE 500 MG TABLET PO SCH ×2 (08:42→20:54)
[2019-05-21] MEDS: CLOPIDOGREL 75 MG TABLET PO SCH (08:42)
[2019-05-21] MEDS: LEVOFLOXACIN INJ 250 MG in PREMIX 1 EACH IV SCH (08:42)
[2019-05-21] MEDS: ISOSORBIDE MONONITRATE 30 MG TABLET PO SCH (08:42)
[2019-05-21] MEDS: ASPIRIN EC 81 MG TABLET PO SCH (08:42)
[2019-05-21] MEDS ORDERED: FUROSEMIDE 40 MG/4 ML VIAL IV ONE (11:37)
[2019-05-21] MEDS ORDERED: BENZOCAINE/MENTHOL LOZENGE 18/BOX PO PRN (11:38)
[2019-05-21] MEDS ORDERED: POTASSIUM CHLORIDE RIDER 10 MEQ in PREMIX 1 EACH IV PRN (12:17)
[2019-05-21] MEDS ORDERED: MAGNESIUM SULF RIDER 2 GM in PREMIX 1 EACH IV PRN (12:17)
[2019-05-21] MEDS: BENZONATATE 100 MG CAPSULE PO SCH ×3 (12:21→20:54)
[2019-05-21] MEDS: MELATONIN 3 MG TABLET PO SCH (20:54)
[2019-05-21] MEDS: diphenhydrAMINE CAP 25 MG CAPSULE PO PRN (20:55)
[2019-05-21] MEDS: PRAMIPEXOLE 0.25 MG TABLET PO SCH (21:13)
[2019-05-22 05:26] LABS: Calcium 9.1 MG/DL (8.5-10.1); Osmolality,Calculated 290.7 MOS/KG (273-304)
[2019-05-22 06:31] LABS: Basophils % 0.4 % (0.0-0.8); Eosinophils # 0.3 10*3/uL (0.0-0.87); Eosinophils % 4.2 % (0.00-10.9); Hematocrit 37.6 VOL% (42.0-52.0); Immature Granulocytes % 0.3 %; Immature Granulocytes Absolute 0.02 #; Lymphocytes # 1.7 10*3/uL (1.4-4.0); Mean Corpuscular HGB Conc 31.1 GM/DL (32-36); Mean Platelet Volume 11.4 FL (9.6-12.0); Monocytes % 10.4 % (1.7-12.7); Neutrophils % 59.7 % (38.7-73.9); Platelet Count 200 T/CUMM (130-400); Red Blood Count 4.37 MC/CUMM (3.8-5.5); Red Cell Distribution Width 18.2 % (9.3-17.3); White Blood Count 6.9 T/CUMM (4-12)
[2019-05-22 06:32] LABS: Hemoglobin 11.7 GM/DL (14.0-18.0)
[2019-05-22] MEDS ORDERED: HEPARIN/NACL 0.9% 2 UNITS/ML 1,000 ML IV ONE (06:43)
[2019-05-22] MEDS ORDERED: LIDOCAINE 1% 20 ML VIAL ONE (06:43)
[2019-05-22] MEDS ORDERED: diphenhydrAMINE CAP 25 MG CAPSULE PO ONE (07:00)
[2019-05-22] MEDS ORDERED: DIAZEPAM 5 MG TABLET PO ONE (07:00)
[2019-05-22] MEDS ORDERED: EPTIFIBATIDE 20,000 MCG/10 ML VIAL ONE (08:04)
[2019-05-22] MEDS ORDERED: HEPARIN 5,000 UNIT/1 ML VIAL ONE ×2 (08:04→08:32)
[2019-05-22] MEDS ORDERED: EPTIFIBATIDE 75 MG/100 ML BOTTLE IV ONE (08:05)
[2019-05-22] MEDS ORDERED: HEPARIN/NACL 0.9% 2 UNITS/ML 500 ML IV ONE (08:33)
[2019-05-22] MEDS ORDERED: CLOPIDOGREL 300 MG TABLET ONE (09:15)
[2019-05-22] MEDS ORDERED: NITROGLYCERIN SL 0.4 MG TABLET SL PRN (09:41)
[2019-05-22] MEDS ORDERED: MIDAZOLAM 2 MG/2 ML VIAL ONE (09:41)
[2019-05-22] MEDS ORDERED: SODIUM CHLORIDE 0.45% 1,000 ML IV SCH (10:00)
[2019-05-22] MEDS: RANOLAZINE 500 MG TABLET PO SCH ×2 (11:31→20:54)
[2019-05-22] MEDS: BENZONATATE 100 MG CAPSULE PO SCH ×3 (11:31→20:54)
[2019-05-22] MEDS: ISOSORBIDE MONONITRATE 30 MG TABLET PO SCH (11:31)
[2019-05-22] MEDS: ASPIRIN EC 81 MG TABLET PO SCH (11:31)
[2019-05-22] MEDS: LEVOFLOXACIN INJ 250 MG in PREMIX 1 EACH IV SCH (11:34)
[2019-05-22] MEDS: CLOPIDOGREL 75 MG TABLET PO SCH (11:43)
[2019-05-22] MEDS: MELATONIN 3 MG TABLET PO SCH (20:54)
[2019-05-22] MEDS: PRAMIPEXOLE 0.25 MG TABLET PO SCH (21:36)
[2019-05-23 03:21] LABS: Basophils % 0.5 % (0.0-0.8); Eosinophils # 0.3 10*3/uL (0.0-0.87); Eosinophils % 4.7 % (0.00-10.9); Hematocrit 34.2 VOL% (42.0-52.0); Hemoglobin 10.4 GM/DL (14.0-18.0); Immature Granulocytes % 0.3 %; Immature Granulocytes Absolute 0.02 #; Lymphocytes % 17.1 % (21.2-54.2); Mean Corpuscular HGB Conc 30.4 GM/DL (32-36); Mean Corpuscular Volume 86.4 FL (87-102); Mean Platelet Volume 11.1 FL (9.6-12.0); Monocytes % 10.1 % (1.7-12.7); Neutrophils % 67.3 % (38.7-73.9); Platelet Count 166 T/CUMM (130-400); Red Blood Count 3.96 MC/CUMM (3.8-5.5); White Blood Count 5.7 T/CUMM (4-12)
[2019-05-23 03:39] LABS: Calcium 8.6 MG/DL (8.5-10.1)
[2019-05-23] MEDS ORDERED: ENOXAPARIN 30 MG/0.3 ML SYRINGE SUBCUT SCH (03:44)
[2019-05-23] MEDS: LEVOFLOXACIN INJ 250 MG in PREMIX 1 EACH IV SCH (08:43)
[2019-05-23] MEDS: RANOLAZINE 500 MG TABLET PO SCH (08:47)
[2019-05-23] MEDS: CLOPIDOGREL 75 MG TABLET PO SCH (08:48)
[2019-05-23] MEDS: ISOSORBIDE MONONITRATE 30 MG TABLET PO SCH (08:48)
[2019-05-23] MEDS: ASPIRIN EC 81 MG TABLET PO SCH (08:48)
[2019-05-23] MEDS: BENZONATATE 100 MG CAPSULE PO SCH (08:48)
[2019-05-23 08:52] VITALS: BP 118/70
== END 2019-05-23 11:36 | disposition home health service (06) | DRG 246 ==
LOC: EDBD → EDUNIT# → N.ED 22:10 → N.EDINP 05-17 03:05 → INTOOBSV 05-17 03:05 → SUATTDRO 05-17 03:05 → N.TELES 05-17 03:59 → N.TELEN 05-18 16:55
PROVIDERS: ADMIT Internal Medicine; ATTEND Family Medicine

== ENCOUNTER 2019-06-18 01:04 | Inpatient (IN) ==
[2019-06-18] MEDS ORDERED: FUROSEMIDE 100 MG/10 ML VIAL IV STA (01:39)
[2019-06-18 02:55] LABS: Albumin 3.7 G/DL (3.4-5.0); Bilirubin,Total 4.3 MG/DL (0.2-1.0); Osmolality,Calculated 287.4 MOS/KG (273-304); Total Protein 6.4 G/DL (6.4-8.3)
[2019-06-18 02:58] LABS: Basophils % 0.6 % (0.0-0.8); Eosinophils # 0.2 10*3/uL (0.0-0.87); Eosinophils % 2.7 % (0.00-10.9); Hematocrit 38.2 VOL% (42.0-52.0); Hemoglobin 11.5 GM/DL (14.0-18.0); INR 1.7; Immature Granulocytes % 0.3 %; Immature Granulocytes Absolute 0.02 #; Lymphocytes # 1.2 10*3/uL (1.4-4.0); Lymphocytes % 17.9 % (21.2-54.2); Mean Corpuscular HGB Conc 30.1 GM/DL (32-36); Mean Corpuscular Volume 82.7 FL (87-102); Neutrophils % 68.5 % (38.7-73.9); PT Patient Result 17.4 SECS (9.8-11.9); Platelet Count 230 T/CUMM (130-400); Red Blood Count 4.62 MC/CUMM (3.8-5.5); Red Cell Distribution Width 17.9 % (9.3-17.3); White Blood Count 6.9 T/CUMM (4-12)
[2019-06-18] MEDS ORDERED: ONDANSETRON 4 MG/2 ML VIAL IV PRN (06:51)
[2019-06-18] MEDS ORDERED: ALBUTEROL/IPRATROPIUM 3 ML NEB RESP TX PRN (06:51)
[2019-06-18] MEDS ORDERED: ACETAMINOPHEN 325 MG TABLET PO PRN (06:51)
[2019-06-18] MEDS ORDERED: DOCUSATE SODIUM 100 MG CAPSULE PO PRN (06:51)
[2019-06-18] MEDS ORDERED: NITROGLYCERIN SL 0.4 MG TABLET SL PRN (08:22)
[2019-06-18] MEDS: NEBIVOLOL 5 MG TABLET PO SCH (08:58)
[2019-06-18] MEDS: CLOPIDOGREL 75 MG TABLET PO SCH (08:59)
[2019-06-18] MEDS: RANOLAZINE 500 MG TABLET PO SCH ×2 (08:59→20:28)
[2019-06-18] MEDS: ISOSORBIDE MONONITRATE 30 MG TABLET PO SCH (08:59)
[2019-06-18] MEDS: ASPIRIN EC 81 MG TABLET PO SCH (08:59)
[2019-06-18] MEDS: FUROSEMIDE 40 MG/4 ML VIAL IV SCH (16:24)
[2019-06-18] MEDS: ATORVASTATIN 20 MG TABLET PO SCH (20:28)
[2019-06-19 06:33] LABS: Basophils % 0.4 % (0.0-0.8); Eosinophils # 0.2 10*3/uL (0.0-0.87); Eosinophils % 4.7 % (0.00-10.9); Hematocrit 35.2 VOL% (42.0-52.0); Hemoglobin 10.4 GM/DL (14.0-18.0); Immature Granulocytes Absolute 0.05 #; Lymphocytes % 20.4 % (21.2-54.2); Mean Corpuscular HGB Conc 29.5 GM/DL (32-36); Mean Corpuscular Volume 83.8 FL (87-102); Mean Platelet Volume 10.8 FL (9.6-12.0); Monocytes % 9.2 % (1.7-12.7); Neutrophils % 64.3 % (38.7-73.9); Platelet Count 205 T/CUMM (130-400); Red Cell Distribution Width 17.7 % (9.3-17.3); White Blood Count 5.1 T/CUMM (4-12)
[2019-06-19 06:49] LABS: Calcium 8.6 MG/DL (8.5-10.1); Osmolality,Calculated 290.3 MOS/KG (273-304)
[2019-06-19] MEDS: NEBIVOLOL 5 MG TABLET PO SCH (09:08)
[2019-06-19] MEDS: FUROSEMIDE 40 MG/4 ML VIAL IV SCH (09:08)
[2019-06-19] MEDS: ASPIRIN EC 81 MG TABLET PO SCH (09:08)
[2019-06-19] MEDS: CLOPIDOGREL 75 MG TABLET PO SCH (09:08)
[2019-06-19] MEDS: POTASSIUM CHLORIDE 20 MEQ TABLET PO PRN ×4 (09:08→17:00)
[2019-06-19] MEDS: RANOLAZINE 500 MG TABLET PO SCH ×2 (09:08→21:05)
[2019-06-19] MEDS: ISOSORBIDE MONONITRATE 30 MG TABLET PO SCH (09:08)
[2019-06-19] MEDS: ATORVASTATIN 20 MG TABLET PO SCH (21:05)
[2019-06-20 07:17] LABS: Calcium 8.7 MG/DL (8.5-10.1); Osmolality,Calculated 289.4 MOS/KG (273-304)
[2019-06-20 09:06] VITALS: BP 151/82
[2019-06-20] MEDS: ASPIRIN EC 81 MG TABLET PO SCH (09:13)
[2019-06-20] MEDS: FUROSEMIDE 40 MG/4 ML VIAL IV SCH (09:13)
[2019-06-20] MEDS: ISOSORBIDE MONONITRATE 30 MG TABLET PO SCH (09:13)
[2019-06-20] MEDS: NEBIVOLOL 5 MG TABLET PO SCH (09:13)
[2019-06-20] MEDS: RANOLAZINE 500 MG TABLET PO SCH (09:13)
[2019-06-20] MEDS: CLOPIDOGREL 75 MG TABLET PO SCH (09:13)
[2019-06-21] MEDS ORDERED: FUROSEMIDE 40 MG TABLET PO SCH (09:00)
[2019-06-21] MEDS ORDERED: metOLazone 5 MG TABLET PO SCH (09:52)
== END 2019-06-20 12:04 | disposition hospice, home (50) | DRG 291 ==
LOC: EDUNIT# → EDBD → N.ED 01:04 → N.EDINP 03:54 → N.TELES 05:29
PROVIDERS: ADMIT Internal Medicine; ATTEND Internal Medicine

== ENCOUNTER 2020-02-19 09:01 | Inpatient (IN) ==
[2020-02-19 09:49] LABS: Basophils % 0.3 % (0.0-0.8); Eosinophils % 0.3 % (0.00-10.9); Hematocrit 37.6 VOL% (42.0-52.0); Hemoglobin 12.4 GM/DL (14.0-18.0); Immature Granulocytes % 7.5 %; Immature Granulocytes Absolute 0.28 #; Lymphocytes # 0.2 10*3/uL (1.4-4.0); Lymphocytes % 4.6 % (21.2-54.2); Mean Corpuscular Volume 87.4 FL (87-102); Mean Platelet Volume 9.4 FL (9.6-12.0); Monocytes % 4.6 % (1.7-12.7); Neutrophils % 82.7 % (38.7-73.9); Platelet Count 127 T/CUMM (130-400); Red Cell Distribution Width 26.7 % (9.3-17.3); White Blood Count 3.7 T/CUMM (4-12)
[2020-02-19] MEDS ORDERED: ALBUTEROL/IPRATROPIUM 3 ML NEB RESP TX STA (09:58)
[2020-02-19 10:00] LABS: Alanine Aminotransferase 21 U/L (16-61); Albumin 2.7 G/DL (3.4-5.0); Alkaline Phosphatase 66 U/L (45-117); Aspartate Amino Transferase 31 U/L (0-37); Blood Urea Nitrogen 62 MG/DL (7-18); Calcium 8.2 MG/DL (8.5-10.1); Carbon Dioxide 19 MMOL/L (21-32); Estimated Glom Filtration Rate 18 ML/MIN; Glucose 119 MG/DL (74-106); Osmolality,Calculated 278.8 MOS/KG (273-304); Sodium 130 MMOL/L (136-145); Total Protein 6.1 G/DL (6.4-8.3)
[2020-02-19 10:10] LABS: Bacteria,Urine Many /HPF (Few); Bilirubin,Urine Negative (Negative); Blood, Urine Moderate mg/dL (Negative); Glucose,Urine (UA) Negative (Negative); Hyaline Casts,Urine 20 /LPF (0-3); Ketones,Urine Negative (Negative); Nitrite,Urine Negative (Negative); Protein,Urine 30 MG/DL; RBC,Urine 27 /HPF (0-4); Squamous Epithelial Cell,Urine Occasional /HPF (0-10); Urine Appearance CLOUDY (Clear); Urine Color Amber (Yellow); Urine Specific Gravity 1.015 (1.001-1.035); Urine Urobilinogen < 2.0 EU/DL (0.2-1.0); WBC,Urine 397 /HPF (0-6)
[2020-02-19] MEDS ORDERED: SODIUM CHLORIDE 0.9% 1,000 ML IV STA (10:21)
[2020-02-19] MEDS ORDERED: LEVOFLOXACIN INJ 750 MG in PREMIX 1 EACH IV STA (10:22)
[2020-02-19 10:24] LABS: Band Neutrophils 10 % (0-10); Hypochromasia 2+; Lymphocytes 4 % (20-55); Metamyelocytes 1 %; Microcytosis 2+; Ovalocytes Few; Polychromasia Slight; Schistocytes Slight; Segmented Neutrophils 80 % (50-85); Tear Drop Cells Few; Total Cells Counted 100
[2020-02-19 10:25] LABS: Platelet Estimate Adequate
[2020-02-19] MEDS ORDERED: ONDANSETRON 4 MG/2 ML VIAL IV PRN (12:13)
[2020-02-19] MEDS ORDERED: GLUCAGON 1 MG VIAL IM PRN (12:13)
[2020-02-19] MEDS ORDERED: DEXTROSE 50% 25 GM/50 ML VIAL IV PRN (12:13)
[2020-02-19] MEDS: cefTRIAXone 1,000 MG in SYRINGE 1 EACH IV SCH (13:40)
[2020-02-19] MEDS: SODIUM CHLORIDE 0.9% 1,000 ML IV SCH ×3 (13:40→23:13)
[2020-02-19] MEDS: ACETAMINOPHEN 325 MG TABLET PO PRN (14:50)
[2020-02-19] MEDS ORDERED: SODIUM CHLORIDE 0.9% 1,000 ML IV ONE (17:15)
[2020-02-19] MEDS ORDERED: BISACODYL 10 MG SUPP RECTAL ONE (17:49)
[2020-02-19] MEDS: ENOXAPARIN 30 MG/0.3 ML SYRINGE SUBCUT SCH (20:32)
[2020-02-19] MEDS: ASCORBIC ACID 500 MG TABLET PO SCH (20:32)
[2020-02-19] MEDS: FAMOTIDINE 20 MG TABLET PO SCH (20:32)
[2020-02-19] MEDS: MELATONIN 3 MG TABLET PO PRN (21:20)
[2020-02-20] MEDS ORDERED: SODIUM CHLORIDE 0.9% 500 ML IV ONE ×2 (01:19→14:32)
[2020-02-20 06:23] LABS: Basophils % 0.8 % (0.0-0.8); Eosinophils % 1.6 % (0.00-10.9); Hematocrit 38.4 VOL% (42.0-52.0); Hemoglobin 12.2 GM/DL (14.0-18.0); Immature Granulocytes % 0.8 %; Immature Granulocytes Absolute 0.02 #; Lymphocytes # 0.2 10*3/uL (1.4-4.0); Lymphocytes % 7.3 % (21.2-54.2); Mean Corpuscular HGB Conc 31.8 GM/DL (32-36); Mean Corpuscular Volume 91.9 FL (87-102); Mean Platelet Volume 10.2 FL (9.6-12.0); Neutrophils % 80.5 % (38.7-73.9); Platelet Count 90 T/CUMM (130-400); Red Blood Count 4.18 MC/CUMM (3.8-5.5); Red Cell Distribution Width 26.9 % (9.3-17.3); White Blood Count 2.5 T/CUMM (4-12)
[2020-02-20] MEDS: SODIUM CHLORIDE 0.9% 1,000 ML IV SCH ×4 (06:49→22:32)
[2020-02-20 06:53] LABS: Albumin 2.3 G/DL (3.4-5.0); Bilirubin,Total 1.6 MG/DL (0.2-1.0); Calcium 7.9 MG/DL (8.5-10.1); Osmolality,Calculated 292.1 MOS/KG (273-304); Potassium 4.3 MMOL/L (3.5-5.1); Total Protein 5.8 G/DL (6.4-8.3)
[2020-02-20 06:56] LABS: Ferritin 275.2 ng/ml (26-388)
[2020-02-20 07:24] LABS: Anisocytosis 2+; Band Neutrophils 43 % (0-10); Burr Cells 2+; Eosinophils 3 % (0-10); Lymphocytes 5 % (20-55); Metamyelocytes 2 %; Platelet Estimate Decreased; Segmented Neutrophils 38 % (50-85); Total Cells Counted 100
[2020-02-20 07:25] LABS: Ovalocytes Few; Spherocytes Few
[2020-02-20] MEDS: FAMOTIDINE 20 MG TABLET PO SCH ×2 (07:59→21:34)
[2020-02-20] MEDS: CETIRIZINE 10 MG TABLET PO SCH (07:59)
[2020-02-20] MEDS: ZINC GLUCONATE 50 MG TABLET PO SCH (07:59)
[2020-02-20] MEDS: CHOLECALCIFEROL 1,000 UNIT TABLET PO SCH (07:59)
[2020-02-20] MEDS: ASCORBIC ACID 500 MG TABLET PO SCH ×2 (07:59→21:34)
[2020-02-20] MEDS: cefTRIAXone 1,000 MG in SYRINGE 1 EACH IV SCH (12:32)
[2020-02-20] MEDS: ENOXAPARIN 30 MG/0.3 ML SYRINGE SUBCUT SCH (21:34)
[2020-02-21] MEDS: SODIUM CHLORIDE 0.9% 1,000 ML IV SCH ×2 (05:10→12:42)
[2020-02-21 05:17] LABS: Basophils % 0.3 % (0.0-0.8); Eosinophils # 0.1 10*3/uL (0.0-0.87); Eosinophils % 4.4 % (0.00-10.9); Hematocrit 36.7 VOL% (42.0-52.0); Hemoglobin 11.8 GM/DL (14.0-18.0); Immature Granulocytes % 0.3 %; Immature Granulocytes Absolute 0.01 #; Lymphocytes # 0.3 10*3/uL (1.4-4.0); Lymphocytes % 9.1 % (21.2-54.2); Mean Corpuscular HGB Conc 32.2 GM/DL (32-36); Mean Corpuscular Volume 89.7 FL (87-102); Monocytes % 9.1 % (1.7-12.7); Neutrophils % 76.8 % (38.7-73.9); Platelet Count 84 T/CUMM (130-400); Red Blood Count 4.09 MC/CUMM (3.8-5.5); Red Cell Distribution Width 27.2 % (9.3-17.3)
[2020-02-21 06:03] LABS: Albumin 2.1 G/DL (3.4-5.0); Bilirubin,Total 1.2 MG/DL (0.2-1.0); Calcium 8.1 MG/DL (8.5-10.1); Osmolality,Calculated 294.8 MOS/KG (273-304); Potassium 3.8 MMOL/L (3.5-5.1); Total Protein 5.6 G/DL (6.4-8.3)
[2020-02-21 06:10] LABS: Band Neutrophils 2 % (0-10); Lymphocytes 8 % (20-55); Platelet Estimate Decreased; Segmented Neutrophils 80 % (50-85); Total Cells Counted 100
[2020-02-21] MEDS: ASCORBIC ACID 500 MG TABLET PO SCH ×2 (10:18→21:58)
[2020-02-21] MEDS: CHOLECALCIFEROL 1,000 UNIT TABLET PO SCH (10:18)
[2020-02-21] MEDS: FAMOTIDINE 20 MG TABLET PO SCH ×2 (10:18→21:58)
[2020-02-21] MEDS: CETIRIZINE 10 MG TABLET PO SCH (10:19)
[2020-02-21] MEDS: ZINC GLUCONATE 50 MG TABLET PO SCH (10:19)
[2020-02-21] MEDS: SODIUM BICARB INJ 100 MEQ in DEXTROSE 5% NACL 0.45% 1,000 ML IV SCH (11:22)
[2020-02-21] MEDS ORDERED: SODIUM CHLORIDE 0.9% 1,000 ML IV PRN (12:02)
[2020-02-21] MEDS: cefTRIAXone 1,000 MG in SYRINGE 1 EACH IV SCH (12:42)
[2020-02-21 14:31] LABS: ABG Base Excess -8.7 MMOL/L (-2.5-2.5); ABG HCO3 17.4 MMOL/L (20-26); ABG Oxygen Saturation 97.5 % (95-100); ABG PCO2 32.4 MM HG (35-48); ABG PH 7.315 (7.35-7.45); ABG TCO2 14.8 MMOL/L (23-27); Allen Test Positive
[2020-02-21] MEDS ORDERED: methylPREDNISolone SOD SUC 125 MG/2 ML VIAL IV ONE (14:51)
[2020-02-21] MEDS ORDERED: FUROSEMIDE 40 MG/4 ML VIAL IV ONE (14:58)
[2020-02-21] MEDS: ALBUTEROL INHALER 18 GM INH SCH ×2 (15:02→21:59)
[2020-02-21] MEDS: methylPREDNISolone SOD SUC 40 MG/1 ML VIAL IV SCH (15:04)
[2020-02-21] MEDS: ENOXAPARIN 30 MG/0.3 ML SYRINGE SUBCUT SCH (21:58)
[2020-02-22] MEDS: ALBUTEROL INHALER 18 GM INH SCH ×7 (01:20→22:12)
[2020-02-22] MEDS: methylPREDNISolone SOD SUC 40 MG/1 ML VIAL IV SCH ×2 (03:45→14:47)
[2020-02-22] MEDS: SODIUM BICARB INJ 100 MEQ in DEXTROSE 5% NACL 0.45% 1,000 ML IV SCH ×2 (04:45→20:36)
[2020-02-22 06:01] LABS: Basophils % 0.2 % (0.0-0.8); Hematocrit 38.2 VOL% (42.0-52.0); Hemoglobin 12.1 GM/DL (14.0-18.0); Immature Granulocytes % 0.7 %; Immature Granulocytes Absolute 0.03 #; Lymphocytes # 0.4 10*3/uL (1.4-4.0); Lymphocytes % 8.5 % (21.2-54.2); Mean Corpuscular HGB Conc 31.7 GM/DL (32-36); Mean Corpuscular Volume 90.3 FL (87-102); Mean Platelet Volume 10.6 FL (9.6-12.0); Monocytes % 3.1 % (1.7-12.7); Neutrophils % 87.5 % (38.7-73.9); Platelet Count 92 T/CUMM (130-400); Red Blood Count 4.23 MC/CUMM (3.8-5.5); Red Cell Distribution Width 27.3 % (9.3-17.3); White Blood Count 4.6 T/CUMM (4-12)
[2020-02-22 06:43] LABS: Albumin 2.2 G/DL (3.4-5.0); Bilirubin,Total 0.9 MG/DL (0.2-1.0); Calcium 8.5 MG/DL (8.5-10.1); Osmolality,Calculated 303.4 MOS/KG (273-304); Total Protein 6.1 G/DL (6.4-8.3)
[2020-02-22 07:34] LABS: Lymphocytes 4 % (20-55); Segmented Neutrophils 96 % (50-85); Total Cells Counted 100
[2020-02-22 07:35] LABS: Platelet Estimate Decreased
[2020-02-22 07:36] LABS: Hypochromasia Slight; Microcytosis Slight
[2020-02-22 07:37] LABS: Ovalocytes Few
[2020-02-22] MEDS: FAMOTIDINE 20 MG TABLET PO SCH ×2 (08:09→20:25)
[2020-02-22] MEDS: ASCORBIC ACID 500 MG TABLET PO SCH ×2 (08:09→20:25)
[2020-02-22] MEDS: CHOLECALCIFEROL 1,000 UNIT TABLET PO SCH (08:09)
[2020-02-22] MEDS: ZINC GLUCONATE 50 MG TABLET PO SCH (08:09)
[2020-02-22] MEDS: CETIRIZINE 10 MG TABLET PO SCH (10:01)
[2020-02-22] MEDS: cefTRIAXone 1,000 MG in SYRINGE 1 EACH IV SCH (11:32)
[2020-02-22] MEDS: ACETAMINOPHEN 325 MG TABLET PO PRN ×2 (12:56→20:26)
[2020-02-22] MEDS: ENOXAPARIN 30 MG/0.3 ML SYRINGE SUBCUT SCH (20:25)
[2020-02-22] MEDS: MELATONIN 3 MG TABLET PO PRN (20:26)
[2020-02-23] MEDS: ALBUTEROL INHALER 18 GM INH SCH ×6 (02:27→23:08)
[2020-02-23] MEDS: methylPREDNISolone SOD SUC 40 MG/1 ML VIAL IV SCH (02:28)
[2020-02-23 06:13] LABS: Basophils % 0.1 % (0.0-0.8); Hemoglobin 13.2 GM/DL (14.0-18.0); Immature Granulocytes Absolute 0.08 #; Lymphocytes # 0.4 10*3/uL (1.4-4.0); Lymphocytes % 5.3 % (21.2-54.2); Mean Corpuscular HGB Conc 32.2 GM/DL (32-36); Mean Corpuscular Volume 88.7 FL (87-102); Neutrophils % 90.6 % (38.7-73.9); Platelet Count 107 T/CUMM (130-400); Red Blood Count 4.62 MC/CUMM (3.8-5.5); Red Cell Distribution Width 27.5 % (9.3-17.3); White Blood Count 7.7 T/CUMM (4-12)
[2020-02-23 06:40] LABS: Albumin 2.4 G/DL (3.4-5.0); Bilirubin,Total 0.8 MG/DL (0.2-1.0); Calcium 8.9 MG/DL (8.5-10.1); Osmolality,Calculated 305.4 MOS/KG (273-304); Potassium 3.5 MMOL/L (3.5-5.1); Total Protein 6.2 G/DL (6.4-8.3)
[2020-02-23 06:59] LABS: Band Neutrophils 2 % (0-10); Hypochromasia 1+; Lymphocytes 4 % (20-55); Microcytosis 1+; Ovalocytes Few; Segmented Neutrophils 91 % (50-85); Total Cells Counted 100
[2020-02-23 07:00] LABS: Platelet Estimate Decreased; Target Cells Slight
[2020-02-23] MEDS: ZINC GLUCONATE 50 MG TABLET PO SCH (09:20)
[2020-02-23] MEDS: CHOLECALCIFEROL 1,000 UNIT TABLET PO SCH (09:20)
[2020-02-23] MEDS: ASCORBIC ACID 500 MG TABLET PO SCH ×2 (09:20→23:08)
[2020-02-23] MEDS: FAMOTIDINE 20 MG TABLET PO SCH ×2 (09:21→23:07)
[2020-02-23] MEDS: CETIRIZINE 10 MG TABLET PO SCH (09:21)
[2020-02-23] MEDS: cefTRIAXone 1,000 MG in SYRINGE 1 EACH IV SCH (11:54)
[2020-02-23] MEDS ORDERED: REMDESIVIR 200 MG in SODIUM CHLORIDE 0.9% 210 ML IV ONE (15:00)
[2020-02-23] MEDS: HALOPERIDOL 5 MG/ML AMP IV PRN (15:42)
[2020-02-23] MEDS: SODIUM BICARB INJ 100 MEQ in DEXTROSE 5% NACL 0.45% 1,000 ML IV SCH (21:10)
[2020-02-23] MEDS: ENOXAPARIN 30 MG/0.3 ML SYRINGE SUBCUT SCH (23:07)
[2020-02-24] MEDS: HALOPERIDOL 5 MG/ML AMP IV PRN ×2 (04:44→15:49)
[2020-02-24] MEDS: methylPREDNISolone SOD SUC 40 MG/1 ML VIAL IV SCH ×2 (04:46→15:50)
[2020-02-24] MEDS: ALBUTEROL INHALER 18 GM INH SCH ×6 (04:48→22:07)
[2020-02-24] MEDS ORDERED: METOPROLOL TARTRATE 5 MG/5 ML VIAL IV ONE (05:34)
[2020-02-24 06:05] LABS: Basophils % 0.1 % (0.0-0.8); Hematocrit 43.4 VOL% (42.0-52.0); Hemoglobin 13.6 GM/DL (14.0-18.0); Immature Granulocytes % 0.9 %; Immature Granulocytes Absolute 0.07 #; Lymphocytes # 0.8 10*3/uL (1.4-4.0); Lymphocytes % 10.2 % (21.2-54.2); Mean Corpuscular HGB Conc 31.3 GM/DL (32-36); Monocytes % 2.6 % (1.7-12.7); Neutrophils % 86.2 % (38.7-73.9); Platelet Count 123 T/CUMM (130-400); Red Blood Count 4.77 MC/CUMM (3.8-5.5); Red Cell Distribution Width 27.9 % (9.3-17.3); White Blood Count 8.1 T/CUMM (4-12)
[2020-02-24 06:08] LABS: Albumin 2.5 G/DL (3.4-5.0); Bilirubin,Total 0.7 MG/DL (0.2-1.0); Calcium 8.9 MG/DL (8.5-10.1); Osmolality,Calculated 317.6 MOS/KG (273-304); Potassium 3.7 MMOL/L (3.5-5.1); Total Protein 6.2 G/DL (6.4-8.3)
[2020-02-24] MEDS ORDERED: DIGOXIN 0.5 MG/2 ML AMP IV ONE (06:30)
[2020-02-24 06:32] LABS: Microcytosis Slight; Ovalocytes Slight; Platelet Estimate Normal
[2020-02-24 06:33] LABS: Hypochromasia Slight
[2020-02-24] MEDS: REMDESIVIR 100 MG in SODIUM CHLORIDE 0.9% 100 ML IV SCH (09:55)
[2020-02-24] MEDS: FAMOTIDINE 20 MG TABLET PO SCH ×2 (09:57→20:11)
[2020-02-24] MEDS: ASCORBIC ACID 500 MG TABLET PO SCH ×2 (09:57→20:11)
[2020-02-24] MEDS: CHOLECALCIFEROL 1,000 UNIT TABLET PO SCH (09:57)
[2020-02-24] MEDS: CETIRIZINE 10 MG TABLET PO SCH (09:58)
[2020-02-24] MEDS: ZINC GLUCONATE 50 MG TABLET PO SCH (09:58)
[2020-02-24] MEDS: DIGOXIN 0.5 MG/2 ML AMP IV SCH ×2 (12:19→17:30)
[2020-02-24] MEDS: cefTRIAXone 1,000 MG in SYRINGE 1 EACH IV SCH (12:21)
[2020-02-24] MEDS: ENOXAPARIN 100 MG/ML SYRINGE SUBCUT SCH (15:52)
[2020-02-24] MEDS: SODIUM BICARB INJ 100 MEQ in DEXTROSE 5% NACL 0.45% 1,000 ML IV SCH (20:12)
[2020-02-25] MEDS: methylPREDNISolone SOD SUC 40 MG/1 ML VIAL IV SCH ×2 (02:36→15:11)
[2020-02-25] MEDS: ALBUTEROL INHALER 18 GM INH SCH ×6 (02:36→23:55)
[2020-02-25 05:51] LABS: Basophils % 0.3 % (0.0-0.8); Hematocrit 42.7 VOL% (42.0-52.0); Hemoglobin 13.3 GM/DL (14.0-18.0); Immature Granulocytes % 0.9 %; Immature Granulocytes Absolute 0.06 #; Lymphocytes # 0.5 10*3/uL (1.4-4.0); Mean Corpuscular HGB Conc 31.1 GM/DL (32-36); Mean Corpuscular Volume 92.4 FL (87-102); Mean Platelet Volume 11.2 FL (9.6-12.0); Monocytes % 4.2 % (1.7-12.7); Neutrophils % 87.6 % (38.7-73.9); Platelet Count 109 T/CUMM (130-400); Red Blood Count 4.62 MC/CUMM (3.8-5.5); Red Cell Distribution Width 27.6 % (9.3-17.3); White Blood Count 6.8 T/CUMM (4-12)
[2020-02-25 06:24] LABS: Calcium 8.8 MG/DL (8.5-10.1); Osmolality,Calculated 309.6 MOS/KG (273-304); Potassium 4.2 MMOL/L (3.5-5.1)
[2020-02-25 06:29] LABS: Hypochromasia Slight; Microcytosis Slight; Platelet Estimate Decreased
[2020-02-25] MEDS: FAMOTIDINE 20 MG TABLET PO SCH ×2 (10:06→20:00)
[2020-02-25] MEDS: CETIRIZINE 10 MG TABLET PO SCH (10:13)
[2020-02-25] MEDS: CHOLECALCIFEROL 1,000 UNIT TABLET PO SCH (10:13)
[2020-02-25] MEDS: REMDESIVIR 100 MG in SODIUM CHLORIDE 0.9% 100 ML IV SCH (10:18)
[2020-02-25] MEDS: ZINC GLUCONATE 50 MG TABLET PO SCH (10:30)
[2020-02-25] MEDS: cefTRIAXone 1,000 MG in SYRINGE 1 EACH IV SCH (12:09)
[2020-02-25] MEDS: ASCORBIC ACID 500 MG TABLET PO SCH ×2 (13:14→20:00)
[2020-02-25] MEDS: ENOXAPARIN 100 MG/ML SYRINGE SUBCUT SCH (15:10)
[2020-02-25] MEDS: SODIUM BICARB INJ 100 MEQ in DEXTROSE 5% NACL 0.45% 1,000 ML IV SCH (16:21)
[2020-02-25] MEDS: ACETAMINOPHEN 325 MG TABLET PO PRN (20:00)
[2020-02-25] MEDS: MELATONIN 3 MG TABLET PO PRN (20:00)
[2020-02-26] MEDS: methylPREDNISolone SOD SUC 40 MG/1 ML VIAL IV SCH ×2 (04:38→14:14)
[2020-02-26] MEDS: ALBUTEROL INHALER 18 GM INH SCH ×5 (04:38→22:26)
[2020-02-26 05:10] LABS: Basophils % 0.1 % (0.0-0.8); Hematocrit 42.6 VOL% (42.0-52.0); Hemoglobin 13.2 GM/DL (14.0-18.0); Immature Granulocytes % 2.1 %; Lymphocytes # 0.7 10*3/uL (1.4-4.0); Mean Platelet Volume 11.5 FL (9.6-12.0); Neutrophils % 84.8 % (38.7-73.9); Platelet Count 150 T/CUMM (130-400); Red Blood Count 4.58 MC/CUMM (3.8-5.5); Red Cell Distribution Width 27.4 % (9.3-17.3); White Blood Count 9.4 T/CUMM (4-12)
[2020-02-26 05:25] LABS: Calcium 8.9 MG/DL (8.5-10.1); Osmolality,Calculated 307.4 MOS/KG (273-304)
[2020-02-26] MEDS: ASCORBIC ACID 500 MG TABLET PO SCH ×2 (08:57→22:18)
[2020-02-26] MEDS: CHOLECALCIFEROL 1,000 UNIT TABLET PO SCH (08:57)
[2020-02-26] MEDS: FAMOTIDINE 20 MG TABLET PO SCH ×2 (08:57→22:18)
[2020-02-26] MEDS: REMDESIVIR 100 MG in SODIUM CHLORIDE 0.9% 100 ML IV SCH (10:25)
[2020-02-26] MEDS: CETIRIZINE 10 MG TABLET PO SCH (10:26)
[2020-02-26] MEDS: ZINC GLUCONATE 50 MG TABLET PO SCH (10:26)
[2020-02-26] MEDS: cefTRIAXone 1,000 MG in SYRINGE 1 EACH IV SCH (12:18)
[2020-02-26] MEDS: ENOXAPARIN 100 MG/ML SYRINGE SUBCUT SCH (15:29)
[2020-02-27] MEDS: methylPREDNISolone SOD SUC 40 MG/1 ML VIAL IV SCH ×2 (03:59→14:35)
[2020-02-27 05:18] LABS: Basophils % 0.2 % (0.0-0.8); Hematocrit 43.7 VOL% (42.0-52.0); Hemoglobin 13.7 GM/DL (14.0-18.0); Immature Granulocytes % 3.1 %; Immature Granulocytes Absolute 0.27 #; Lymphocytes # 0.8 10*3/uL (1.4-4.0); Lymphocytes % 9.3 % (21.2-54.2); Mean Corpuscular HGB Conc 31.4 GM/DL (32-36); Mean Corpuscular Volume 92.8 FL (87-102); Monocytes % 5.9 % (1.7-12.7); NRBC # 0.02 10*3/uL; Neutrophils % 81.5 % (38.7-73.9); Platelet Count 160 T/CUMM (130-400); Red Blood Count 4.71 MC/CUMM (3.8-5.5); Red Cell Distribution Width 27.1 % (9.3-17.3); White Blood Count 8.8 T/CUMM (4-12)
[2020-02-27 05:43] LABS: Calcium 8.6 MG/DL (8.5-10.1); Osmolality,Calculated 299.8 MOS/KG (273-304); Potassium 4.2 MMOL/L (3.5-5.1)
[2020-02-27 05:53] LABS: Lymphocytes 9 % (20-55); Nucleated Red Blood Cells 1 (0-5); Platelet Estimate Adequate; Segmented Neutrophils 89 % (50-85); Total Cells Counted 100
[2020-02-27] MEDS: ALBUTEROL INHALER 18 GM INH SCH ×6 (06:39→23:44)
[2020-02-27] MEDS: ASCORBIC ACID 500 MG TABLET PO SCH ×2 (08:19→21:51)
[2020-02-27] MEDS: ZINC GLUCONATE 50 MG TABLET PO SCH (08:20)
[2020-02-27] MEDS: CHOLECALCIFEROL 1,000 UNIT TABLET PO SCH (08:20)
[2020-02-27] MEDS: FAMOTIDINE 20 MG TABLET PO SCH ×2 (08:20→21:52)
[2020-02-27] MEDS: CETIRIZINE 10 MG TABLET PO SCH (08:20)
[2020-02-27] MEDS: REMDESIVIR 100 MG in SODIUM CHLORIDE 0.9% 100 ML IV SCH (09:20)
[2020-02-27] MEDS: ENOXAPARIN 100 MG/ML SYRINGE SUBCUT SCH (14:35)
[2020-02-27] MEDS: MELATONIN 3 MG TABLET PO PRN (21:51)
[2020-02-27] MEDS: DESITIN 4OZ/NYSTATIN 15 GRAM MIXTURE PASTE TOP SCH (21:52)
[2020-02-28] MEDS: methylPREDNISolone SOD SUC 40 MG/1 ML VIAL IV SCH ×2 (04:12→15:50)
[2020-02-28] MEDS: ALBUTEROL INHALER 18 GM INH SCH ×5 (04:12→18:39)
[2020-02-28 06:11] LABS: Basophils % 0.3 % (0.0-0.8); Hematocrit 41.6 VOL% (42.0-52.0); Immature Granulocytes % 2.3 %; Immature Granulocytes Absolute 0.17 #; Lymphocytes # 0.5 10*3/uL (1.4-4.0); Lymphocytes % 6.6 % (21.2-54.2); Mean Corpuscular HGB Conc 31.3 GM/DL (32-36); Mean Corpuscular Volume 93.5 FL (87-102); Monocytes % 5.3 % (1.7-12.7); Neutrophils % 85.5 % (38.7-73.9); Platelet Count 140 T/CUMM (130-400); Red Blood Count 4.45 MC/CUMM (3.8-5.5); Red Cell Distribution Width 26.6 % (9.3-17.3); White Blood Count 7.6 T/CUMM (4-12)
[2020-02-28 06:25] LABS: Calcium 8.6 MG/DL (8.5-10.1); Osmolality,Calculated 306.3 MOS/KG (273-304)
[2020-02-28 06:42] LABS: Hypochromasia 1+
[2020-02-28 06:43] LABS: Microcytosis 1+; Platelet Estimate Adequate; Spherocytes Slight
[2020-02-28] MEDS: DESITIN 4OZ/NYSTATIN 15 GRAM MIXTURE PASTE TOP SCH ×2 (08:30→21:00)
[2020-02-28] MEDS: CETIRIZINE 10 MG TABLET PO SCH (10:20)
[2020-02-28] MEDS: ASCORBIC ACID 500 MG TABLET PO SCH ×2 (10:20→21:00)
[2020-02-28] MEDS: FAMOTIDINE 20 MG TABLET PO SCH ×2 (10:20→21:00)
[2020-02-28] MEDS: CHOLECALCIFEROL 1,000 UNIT TABLET PO SCH (10:20)
[2020-02-28] MEDS: ZINC GLUCONATE 50 MG TABLET PO SCH (10:20)
[2020-02-28] MEDS: ENOXAPARIN 100 MG/ML SYRINGE SUBCUT SCH (15:50)
[2020-02-29] MEDS: ALBUTEROL INHALER 18 GM INH SCH ×6 (00:17→19:22)
[2020-02-29] MEDS: methylPREDNISolone SOD SUC 40 MG/1 ML VIAL IV SCH ×2 (03:04→16:01)
[2020-02-29 05:54] LABS: Calcium 8.3 MG/DL (8.5-10.1); Osmolality,Calculated 301.6 MOS/KG (273-304); Potassium 4.3 MMOL/L (3.5-5.1)
[2020-02-29 06:10] LABS: Basophils % 0.1 % (0.0-0.8); Hematocrit 43.4 VOL% (42.0-52.0); Hemoglobin 13.2 GM/DL (14.0-18.0); Immature Granulocytes % 2.8 %; Immature Granulocytes Absolute 0.22 #; Lymphocytes # 0.4 10*3/uL (1.4-4.0); Lymphocytes % 5.2 % (21.2-54.2); Mean Corpuscular HGB Conc 30.4 GM/DL (32-36); Mean Corpuscular Volume 94.8 FL (87-102); Monocytes % 3.9 % (1.7-12.7); NRBC # 0.02 10*3/uL; Platelet Count 160 T/CUMM (130-400); Red Blood Count 4.58 MC/CUMM (3.8-5.5); Red Cell Distribution Width 26.5 % (9.3-17.3); White Blood Count 7.9 T/CUMM (4-12)
[2020-02-29 07:13] LABS: Platelet Estimate Adequate; Polychromasia Slight
[2020-02-29] MEDS: DESITIN 4OZ/NYSTATIN 15 GRAM MIXTURE PASTE TOP SCH ×2 (09:07→20:40)
[2020-02-29] MEDS: CETIRIZINE 10 MG TABLET PO SCH (09:08)
[2020-02-29] MEDS: ASCORBIC ACID 500 MG TABLET PO SCH ×2 (09:08→20:40)
[2020-02-29] MEDS: ZINC GLUCONATE 50 MG TABLET PO SCH (09:08)
[2020-02-29] MEDS: FAMOTIDINE 20 MG TABLET PO SCH ×2 (09:08→20:40)
[2020-02-29] MEDS: CHOLECALCIFEROL 1,000 UNIT TABLET PO SCH (09:08)
[2020-02-29] MEDS: ENOXAPARIN 100 MG/ML SYRINGE SUBCUT SCH (16:01)
[2020-02-29] MEDS: ASPIRIN EC 81 MG TABLET PO SCH (18:10)
[2020-02-29] MEDS: CLOPIDOGREL 75 MG TABLET PO SCH (18:10)
[2020-02-29] MEDS: MIRTAZAPINE 15 MG TABLET PO SCH (20:40)
[2020-02-29] MEDS: RANOLAZINE 500 MG TABLET PO SCH (20:40)
[2020-02-29] MEDS: MELATONIN 3 MG TABLET PO PRN (20:40)
[2020-02-29] MEDS: SIMVASTATIN 20 MG TABLET PO SCH (20:40)
[2020-03-01] MEDS: ALBUTEROL INHALER 18 GM INH SCH ×6 (00:08→19:00)
[2020-03-01] MEDS: methylPREDNISolone SOD SUC 40 MG/1 ML VIAL IV SCH (02:47)
[2020-03-01 06:15] LABS: Basophils % 0.2 % (0.0-0.8); Hematocrit 41.4 VOL% (42.0-52.0); Hemoglobin 12.5 GM/DL (14.0-18.0); Immature Granulocytes % 1.8 %; Immature Granulocytes Absolute 0.12 #; Lymphocytes # 0.3 10*3/uL (1.4-4.0); Lymphocytes % 4.7 % (21.2-54.2); Mean Corpuscular HGB Conc 30.2 GM/DL (32-36); Mean Corpuscular Volume 95.4 FL (87-102); Mean Platelet Volume 11.3 FL (9.6-12.0); Monocytes % 2.9 % (1.7-12.7); Neutrophils % 90.4 % (38.7-73.9); Platelet Count 129 T/CUMM (130-400); Red Blood Count 4.34 MC/CUMM (3.8-5.5); Red Cell Distribution Width 25.8 % (9.3-17.3); White Blood Count 6.6 T/CUMM (4-12)
[2020-03-01 06:35] LABS: Albumin 2.5 G/DL (3.4-5.0); Calcium 8.2 MG/DL (8.5-10.1); Potassium 4.8 MMOL/L (3.5-5.1)
[2020-03-01 07:17] LABS: Band Neutrophils 1 % (0-10); Hypochromasia 1+; Lymphocytes 3 % (20-55); Metamyelocytes 1 %; Platelet Estimate Adequate; Polychromasia Slight; Segmented Neutrophils 89 % (50-85); Total Cells Counted 100
[2020-03-01] MEDS: RANOLAZINE 500 MG TABLET PO SCH ×2 (09:26→21:25)
[2020-03-01] MEDS: PRAMIPEXOLE 0.25 MG TABLET PO SCH (09:26)
[2020-03-01] MEDS: CETIRIZINE 10 MG TABLET PO SCH (09:26)
[2020-03-01] MEDS: NEBIVOLOL 5 MG TABLET PO SCH (09:27)
[2020-03-01] MEDS: CHOLECALCIFEROL 1,000 UNIT TABLET PO SCH (09:27)
[2020-03-01] MEDS: FAMOTIDINE 20 MG TABLET PO SCH ×2 (09:27→21:25)
[2020-03-01] MEDS: ZINC GLUCONATE 50 MG TABLET PO SCH (09:27)
[2020-03-01] MEDS: ASPIRIN EC 81 MG TABLET PO SCH (09:27)
[2020-03-01] MEDS: DOCUSATE SODIUM 100 MG CAPSULE PO SCH (09:27)
[2020-03-01] MEDS: ISOSORBIDE MONONITRATE 30 MG TABLET PO SCH (09:27)
[2020-03-01] MEDS: ASCORBIC ACID 500 MG TABLET PO SCH ×2 (09:27→21:25)
[2020-03-01] MEDS: DESITIN 4OZ/NYSTATIN 15 GRAM MIXTURE PASTE TOP SCH ×2 (09:27→21:25)
[2020-03-01] MEDS: CLOPIDOGREL 75 MG TABLET PO SCH (09:27)
[2020-03-01] MEDS ORDERED: FUROSEMIDE 40 MG/4 ML VIAL IV ONE (09:54)
[2020-03-01] MEDS: predniSONE 10 MG TABLET PO SCH (11:46)
[2020-03-01] MEDS: ENOXAPARIN 100 MG/ML SYRINGE SUBCUT SCH (15:42)
[2020-03-01] MEDS: MIRTAZAPINE 15 MG TABLET PO SCH (21:25)
[2020-03-01] MEDS: SIMVASTATIN 20 MG TABLET PO SCH (21:25)
[2020-03-02] MEDS: ALBUTEROL INHALER 18 GM INH SCH ×6 (00:30→22:18)
[2020-03-02 05:56] LABS: Albumin 2.7 G/DL (3.4-5.0); Bilirubin,Total 2.8 MG/DL (0.2-1.0); Calcium 8.6 MG/DL (8.5-10.1); Potassium 4.5 MMOL/L (3.5-5.1); Total Protein 5.4 G/DL (6.4-8.3)
[2020-03-02 06:58] LABS: Basophils % 0.3 % (0.0-0.8); Eosinophils % 0.3 % (0.00-10.9); Hematocrit 46.2 VOL% (42.0-52.0); Hemoglobin 13.8 GM/DL (14.0-18.0); Immature Granulocytes % 1.4 %; Immature Granulocytes Absolute 0.15 #; Mean Corpuscular HGB Conc 29.9 GM/DL (32-36); Mean Corpuscular Volume 96.9 FL (87-102); Mean Platelet Volume 11.5 FL (9.6-12.0); Monocytes % 4.8 % (1.7-12.7); Neutrophils % 84.2 % (38.7-73.9); Platelet Count 133 T/CUMM (130-400); Red Blood Count 4.77 MC/CUMM (3.8-5.5); Red Cell Distribution Width 25.2 % (9.3-17.3); White Blood Count 10.5 T/CUMM (4-12)
[2020-03-02 07:26] LABS: Hypochromasia Slight
[2020-03-02] MEDS: DOCUSATE SODIUM 100 MG CAPSULE PO SCH (08:45)
[2020-03-02] MEDS: FAMOTIDINE 20 MG TABLET PO SCH ×2 (08:45→22:19)
[2020-03-02] MEDS: ISOSORBIDE MONONITRATE 30 MG TABLET PO SCH (08:45)
[2020-03-02] MEDS: CETIRIZINE 10 MG TABLET PO SCH (08:45)
[2020-03-02] MEDS: CLOPIDOGREL 75 MG TABLET PO SCH (08:45)
[2020-03-02] MEDS: DESITIN 4OZ/NYSTATIN 15 GRAM MIXTURE PASTE TOP SCH ×2 (08:45→22:19)
[2020-03-02] MEDS: ASCORBIC ACID 500 MG TABLET PO SCH ×2 (08:45→22:19)
[2020-03-02] MEDS: ASPIRIN EC 81 MG TABLET PO SCH (08:45)
[2020-03-02] MEDS: CHOLECALCIFEROL 1,000 UNIT TABLET PO SCH (08:45)
[2020-03-02] MEDS: PRAMIPEXOLE 0.25 MG TABLET PO SCH (08:45)
[2020-03-02] MEDS: predniSONE 10 MG TABLET PO SCH (08:45)
[2020-03-02] MEDS: ZINC GLUCONATE 50 MG TABLET PO SCH (08:45)
[2020-03-02] MEDS: RANOLAZINE 500 MG TABLET PO SCH ×2 (08:45→22:18)
[2020-03-02] MEDS: NEBIVOLOL 5 MG TABLET PO SCH (08:45)
[2020-03-02] MEDS: ENOXAPARIN 100 MG/ML SYRINGE SUBCUT SCH (18:22)
[2020-03-02] MEDS: MIRTAZAPINE 15 MG TABLET PO SCH (22:19)
[2020-03-02] MEDS: SIMVASTATIN 20 MG TABLET PO SCH (22:19)
[2020-03-03] MEDS: ALBUTEROL INHALER 18 GM INH SCH ×2 (00:26→03:54)
[2020-03-03 06:01] LABS: Albumin 2.4 G/DL (3.4-5.0); Bilirubin,Total 2.2 MG/DL (0.2-1.0); Calcium 7.9 MG/DL (8.5-10.1); Osmolality,Calculated 285.3 MOS/KG (273-304); Total Protein 4.8 G/DL (6.4-8.3)
[2020-03-03] MEDS: ASCORBIC ACID 500 MG TABLET PO SCH (08:37)
[2020-03-03] MEDS: ISOSORBIDE MONONITRATE 30 MG TABLET PO SCH (08:37)
[2020-03-03] MEDS: PRAMIPEXOLE 0.25 MG TABLET PO SCH (08:37)
[2020-03-03] MEDS: DESITIN 4OZ/NYSTATIN 15 GRAM MIXTURE PASTE TOP SCH (08:37)
[2020-03-03] MEDS: CLOPIDOGREL 75 MG TABLET PO SCH (08:37)
[2020-03-03] MEDS: predniSONE 10 MG TABLET PO SCH (08:37)
[2020-03-03] MEDS: ASPIRIN EC 81 MG TABLET PO SCH (08:37)
[2020-03-03] MEDS: CHOLECALCIFEROL 1,000 UNIT TABLET PO SCH (08:37)
[2020-03-03] MEDS: FAMOTIDINE 20 MG TABLET PO SCH (08:37)
[2020-03-03] MEDS: ZINC GLUCONATE 50 MG TABLET PO SCH (08:37)
[2020-03-03] MEDS: CETIRIZINE 10 MG TABLET PO SCH (08:37)
[2020-03-03] MEDS: DOCUSATE SODIUM 100 MG CAPSULE PO SCH (08:37)
[2020-03-03] MEDS: RANOLAZINE 500 MG TABLET PO SCH (08:37)
[2020-03-03] MEDS: NEBIVOLOL 5 MG TABLET PO SCH (08:37)
[2020-03-03 11:57] VITALS: BP 150/93
== END 2020-03-03 13:27 | disposition swing bed (61) | DRG 871 ==
LOC: EDUNIT# → EDBD → N.ED 09:01 → N.EDINP 12:13 → SUATTDRO 12:13 → N.EDINP 13:07 → N.2E 13:27
PROVIDERS: ADMIT Family Medicine; ATTEND Internal Medicine